=== PATIENT | female | born 1970 | race Caucasian/White ===

== ENCOUNTER 2024-02-21 16:29 | Emergency (ER) | payer MEDICAID, SELFPAY ==
[2024-02-21 16:30] VITALS: BP 183/93; PULSE 82; RESP 18; TEMP 36.6; O2SAT 98; BMI 32.8
[2024-02-21 16:45] LABS: Absolute Lymphocyte Count 3.81 X10^3/uL (0.83-4.51); Absolute Neutrophil Count 6.1 X10^3/uL (2.0-7.7); Basophil# 0.11 X10^3/uL; Basophil% 0.9 % (0-1); Eosinophil# 0.39 X10^3/uL; Eosinophils% 3.4 % (0-5); Hematocrit 36.4 % (37-47); Hemoglobin 12.1 g/dL (12.0-15.0); Lymphocyte # 3.81 X10^3/ul (0.83-4.51); Lymphocyte % 32.8 % (19-41); Mean Corp Hgb Conc 33.2 g/dL (32-36); Mean Corpuscular Hgb 27.9 pg (27.0-32.0); Mean Corpuscular Volume 83.9 fL (81-99); Monocyte# 1.18 X10^3/uL; Monocyte% 10.2 % (0-10); NRBC Flagged by Analyzer 0 % (0-5); Neutrophil # 6.06 X10^3/uL (2.7-7.7); Neutrophil % 52.2 % (47-70); Platelet Count 455 K/mm3 (150-450); RBC Distribution Width CV 13.7 % (11.6-14.6); RBC Distribution Width SD 42.1 fl (35.1-43.9); Red Blood Count 4.34 M/mm3 (4.2-5.4); White Blood Count 11.6 K/mm3 (4.4-11.0)
[2024-02-21 17:14] LABS: Bacteria 0 SEEN /hpf (None Seen); Mucous, Urine 0 SEEN /hpf (<or=2+)
[2024-02-21 17:27] LABS: Color, Urine Yellow (Yellow); Glucose, Dipstick Normal (Normal); Ketone-Dipstick Negative (Negative); Leukocyte Esterase-Dipstick Negative /ul (Negative); Nitrite-Dipstick Negative (Negative); Occult Blood-Urine Negative /ul (Negative); Protein-Dipstick Negative (Negative); Specific Gravity, Urine 1.015 (1.002-1.030); Urine Bilirubin Dipstick Negative (Negative); Urine Clarity Clear (Clear); Urine Urobilinogen Normal (Normal)
[2024-02-21 17:30] LABS: ALB/GLOB Ratio 1.1 RATIO (0.9-2.4); AST(SGOT) 13 U/L (15-37); Alanine Aminotransfer ALT/SGPT 21 U/L (13-56); Albumin, Serum 3.6 g/dL (3.2-5.0); Alkaline Phosphatase 124 U/L (45-117); Anion Gap 4 (5-15); BUN 18 mg/dL (7-18); BUN/Creat Ratio 21.4 RATIO (10-20); Calcium,Total 9.7 mg/dL (8.5-10.1); Chloride 106 mmol/L (98-107); Creatinine, Serum 0.84 mg/dL (0.55-1.02); EST Glomerular Filtration Rate 74 mL/min (>60); Est Glom Filt Rate - Afr Amer 90 mL/min (>60); Estimated Creatinine Clearance 79.64 ml/min; Globulin 3.4 g/dL (2.2-4.2); Glucose 172 mg/dL (74-106); Potassium 3.6 mmol/L (3.5-5.1); Sodium Level 137 mmol/L (136-145)
[2024-02-21 17:51] LABS: Red Blood Cells-Urine 0-5 SEEN /hpf (0-5); Squamous Epithelial Cells - UA 0-5 SEEN /hpf (5-10); White Blood Cells 0-5 SEEN /hpf (0-5)
[2024-02-21] MEDS: 0.9% Normal Saline (1000mL) 1,000 ML 999 ML IV (17:51)
--- NOTE | 2024-02-21 18:01 | EDS_ITS ---
HPI History of Present Illness Chief Complaint: Abd Pain Narrative Narrative: Chief complaint and HPI: Right lower quadrant abdominal pain. 54-year-old female with past medical history of neuroendocrine tumor status post splenectomy, bowel resection, partial pancreatectomy, DM, HTN, HLD presents for evaluation of right lower quadrant abdominal pain. Onset of symptoms 4 days ago. Has been taking Tylenol and Advil with some relief. Pain fluctuates in intensity. Radiates to the right flank/back. Called PCP who told her to present to the ED. No history of urolithiasis. History of UTI. Denies any fever, chills, shortness of breath, chest pain, nausea, vomiting, diarrhea, dysuria. Review of systems: See HPI Medications: As listed on the chart Allergies: As listed on the chart PFSH: Per chart Vital signs: As listed on the chart. Reviewed. Physical exam: Gen: A&O x3, NAD Head: Normocephalic, atraumatic Eyes: No sclera icterus, conjunctiva clear ENT: Moist mucous membranes Neck: Trachea midline, No JVD CV: RRR, no murmurs, no peripheral edema Resp: Lungs CTA BL, no w/r/c GI: Abd soft, non-distended, mild tenderness to palpation in the right lower quadrant, no rebound, rigidity, or guarding : No CVA tenderness Musc: Full ROM, no deformity, tender to palpation in the lumbar paraspinal musculature of the right lumbar spine-muscles tense Skin: Warm, dry Neuro: Alert, oriented, grossly intact, sensation intact Psych: Cooperative, appropriate mood and affect [facility] Medical History (Updated 02/21/24 @ 17:53 by Mariama Romero) Hypercholesteremia Hypertension Diabetes Allergy/AdvReac Type Severity Reaction Status Date / Time amoxicillin Allergy Mild Hives Verified 02/21/24 16:30 Sulfa (Sulfonamide AdvReac Mild OTHER Verified 02/21/24 16:30 Antibiotics) Social History Smoking Status: Never smoker EXAM Physical Exam Const Vital Signs: 02/21/24 16:30 02/21/24 18:29 02/21/24 20:00 Temperature 97.9 F Temperature Source Oral Pulse Rate 82 76 70 Respiratory Rate 18 16 Blood Pressure 183/93 H 154/84 H 141/77 H Blood Pressure Mean 123 107 98 Pulse Ox 98 98 98 Oxygen Delivery Method Room Air Room Air 02/21/24 20:59 Temperature 98 F Temperature Source Pulse Rate 77 Respiratory Rate 16 Blood Pressure 138/69 H Blood Pressure Mean 92 Pulse Ox 98 Oxygen Delivery Method MDM MDM MDM Narrative Medical decision making narrative: 54-year-old female with past medical history of neuroendocrine tumor status post splenectomy, bowel resection, partial pancreatectomy, DM, HTN, HLD presents for evaluation of right lower quadrant abdominal pain. Differential diagnosis includes but is not limited to appendicitis, urolithiasis, UTI, myofascial spasm, viral illness. Patient offered pain medicine and declined. Abdominal pain workup ordered. CBC with mild leukocytosis of 11.6. No anemia. Patient has mild thrombocytosis of 455. CMP without AYLA or transaminitis. UA negative for UTI or blood. CT abdomen pelvis shows known postoperative changes but otherwise no acute intra-abdominal pathology. At this point in time, no clear etiology for patient's pain. May be secondary to myofascial spasm. Tylenol and Motrin as needed for pain. Follow-up with PCP. Return precautions explained. Patient permed understand the plan. Patient stable to discharge home. Impression: 1. Right lower quadrant abdominal pain Lab Data Labs: Laboratory Results - last 24 hr 02/21/24 02/21/24 16:37 17:08 WBC 11.6 H RBC 4.34 Hgb 12.1 Hct 36.4 L MCV 83.9 MCH 27.9 MCHC 33.2 RDW Std Deviation 42.1 RDW Coeff of Dickson 13.7 Plt Count 455 H MPV 9.0 Immature Gran % (Auto) 0.500 Neut % (Auto) 52.2 Lymph % (Auto) 32.8 Rush % (Auto) 10.2 H Eos % (Auto) 3.4 Baso % (Auto) 0.9 Absolute Neuts (auto) 6.1 Absolute Lymphs (auto) 3.81 Nucleated RBC % 0 Sodium 137 Potassium 3.6 Chloride 106 Carbon Dioxide 28.0 Anion Gap 4 L BUN 18 Creatinine 0.84 Estim Creat Clear Calc 79.64 Est GFR (MDRD) Af Amer 90 Est GFR (MDRD) Non-Af 74 BUN/Creatinine Ratio 21.4 H Glucose 172 H Calcium 9.7 Total Bilirubin 0.50 AST 13 L ALT 21 Alkaline Phosphatase 124 H Total Protein 7.0 Albumin 3.6 Globulin 3.4 Albumin/Globulin Ratio 1.1 Urine Color Yellow Urine Clarity Clear Urine pH 6.0 Ur Specific [place] 1.015 Urine Protein Negative Urine Glucose (UA) Normal Urine Ketones Negative Urine Occult Blood Negative Urine Nitrite Negative Urine Bilirubin Negative Urine Urobilinogen Normal Ur Leukocyte Esterase Negative Urine RBC 0-5 SEEN Urine WBC 0-5 SEEN Ur Squamous Epith Cells 0-5 SEEN Urine Bacteria 0 SEEN Urine Mucus 0 SEEN Radiography Diagnostic Testing: Clinical Impression(s) from Imaging Studies Abdomen/Pelvis CT 02/21/24 18:22 IMPRESSION: Postoperative changes. No obstruction. No hydronephrosis. Electronically Signed: Vickey Avila MD at 19:42 EST , Discharge Plan Triage Chief Complaint: Abd Pain ED Provider: Reinaldo Mejia Dx/Rx/DC Orders Instructions: ED Abdominal Pain Unkn Cause Fem Primary Care Provider: Priscilla Avila Referrals: Priscilla Avila [Primary Care Provider] - 3-5 Days Activity Restrictions/Additional Instructions: Return back to ED if symptoms change or worsen. Follow-up with your primary care physician. Tylenol Motrin as needed for pain. Print Language: Swedish Disposition Disposition: Home, Self Care Discharge Date/Time: 02/21/24 21:00
--- NOTE | 2024-02-21 18:22 | CT_ITS ---
STUDY: CT ABDOMEN AND PELVIS WITH CONTRAST REASON FOR EXAM: Female, 54 years old. Right lower quadrant abdominal pain RADIATION DOSAGE (If Supplied By Facility): CTDIvol = ( 14.08 ) mGy, DLP = ( 1145.11 ) mGycm TECHNIQUE: Transaxial images were obtained from the dome of the diaphragm to the symphysis pubis without oral contrast. IV 100mL Isovue-300 was administered. Sagittal and coronal images were reconstructed. Individualized dose optimization techniques were used for this CT. COMPARISON: None. FINDINGS: The visualized lung bases are unremarkable. The visualized portions of the heart are within normal limits. Normal liver. There are surgical clips in the gallbladder fossa consistent with a prior cholecystectomy. The spleen is not seen consistent with splenectomy . There is resection of the tail of the pancreas. Normal bilateral adrenal glands. Normal right kidney. Normal left kidney. Normal visualized stomach. Normal small intestine. Normal colon. The appendix is visualized and appears normal. Normal abdominal aorta. Normal inferior vena cava. Normal retroperitoneum. Normal urinary bladder. There is absence of the uterus consistent with a prior hysterectomy. There is no free fluid in the abdomen or pelvis. There is postoperative change of the abdominal wall. There is degenerative change of the spine with disc space narrowing at L5-S1. CT/Abdomen/Pelvis W IV Cont ONLY IMPRESSION: Postoperative changes. No obstruction. No hydronephrosis. Electronically Signed: Vickey Avila MD at 19:42 EST ,
[2024-02-21 18:29] VITALS: BP 154/84; PULSE 76; O2SAT 98
[2024-02-21 20:00] VITALS: BP 141/77; PULSE 70; RESP 16; O2SAT 98
[2024-02-21 20:59] VITALS: BP 138/69; PULSE 77; RESP 16; TEMP 36.6; O2SAT 98
== END 2024-02-21 21:00 | disposition home or self-care (01) ==
PROVIDERS: Emergency Provider Surgery; PCP Family Medicine; Visit Provider Surgery
DX: R10.31 Right lower quadrant pain (principal); E11.9 Type 2 diabetes mellitus without complications; I10 Essential (primary) hypertension; E78.00 Pure hypercholesterolemia, unspecified; D75.839 Thrombocytosis, unspecified; Z88.0 Allergy status to penicillin; Z88.2 Allergy status to sulfonamides; Z90.81 Acquired absence of spleen; Z87.19 Personal history of other diseases of the digestive system; Z90.411 Acquired partial absence of pancreas; Z86.012 Personal history of benign carcinoid tumor; Z87.440 Personal history of urinary (tract) infections
CPT/HCPCS: 74177; 80053; 81001; 85025; 96360; 99283; Q9967; A4216

== ENCOUNTER 2024-03-27 12:00 | Outpatient (RCR) | payer MEDICAID, SELFPAY ==
--- NOTE | 2024-03-07 15:46 | HP.PTEVAL_ITS ---
Patient's Visit Information Visit Information Visit Information: SHILPA TEJEDA is a 54 year old F referred to Physical Therapy by Dr. Josafat Littlejohn MD with a diagnosis of R ACHILLES TENDINITIS, PLANTAR FASCITIS AND PERONEAL TENDON INJURY.. Date of Evaluation: 03/07/24 Physical Therapist: Trini Zepeda PT, Cert MDT Visit Plan Frequency: 2-3x /Week Duration: 3 Weeks Plan: SCHEDULED FOR NECK FUSION IN 3 WEEKS (03/29/24) - SEE GAIT PROGRESSION BELOW. 1. R FOOT/ANKLE US AT 1.3 W/CM2 X 8 MIN 2. R FOOT/ANKLE/LEG DEEP TISSUE STM 3. R LE ROM/STRETCHING 4. CORE AND R LE STRENGTHEING 5. GAIT/BALANCE/PROPRIOCEPTIVE TRAINING WBAT - HELP PATIENT TRANSITION GRADUALLY FROM WALKING BOOT TO SUPPORTIVE SHOE OVER NEXT 2 WEEKS TOLERATED. 6. HEP INST. Subjective Subjective: Work/Leisure: STAYS AT HOME WITH DAD (DIMENTIA) DISABILITY: YES - SINCE 2023 FOR BACK Present symptoms: R HEEL AND MEDIAL ANKLE AND FOOT PAIN. Present since: NOV 2023 Pain Scale: WORST 6/10, LEAST 1/10 Currently: 3/10 Is it getting better, worse or staying the same: STAYING THE SAME Commenced as a result of: NO APPARENT REASON. JUST MOVED. HAD TO DO MOST OF THE MOVING BECAUSE DAD CAN NOT HELP. IT WAS A LOT. DX'D WITH HEEL FX. Worse: SHOPPING, BEING ON IT A LOT Better: RESTING IT, USING TRAMADOL (PRESCRIBED FOR BACK), WRAPPING IT UP IN HEATING PAD. Disturbed sleep: YES Previous history/Previous treatment: H/O TOE FX'S A COUPLE TIMES IN THE PAST. SHELF FELL ON IT AND STUBBED FOOT ON OUT DOOR CHAIR. Treatment this episode: BOOT FOR 4 TO 6 WEEKS AND MRI SHOWED PLANTAR fasciitis. WASN'T ABLE TO STAY COMPLETELY OFF OF IT LIKE THEY WANTED HER TO BECAUSE OF NEEDING TO TAKE CARE OF 3 DOGS AND GET DAD TO DOCTOR DAHLIA'TS. ONLY TREATMENT HAS BEEN BOOT AND REST. Gait: TRIED TO WEAN INTO SHOE BUT COULDN'T SO DR. LITTLEJOHN PUT HER BACK IN BOOT AND HAD HER BUY [employer] TENNIS SHOES AND START PT. HAS BEEN BACK IN TALLER BOOT FOR ABOUT A WEEK AND NOT SUPPOSED TO START SHOE UNTIL STARTS PT. TAKES BOOT OFF TO DRIVE ONLY. SHE REPORTS DR. LITTLEJOHN TOLD HER EVERYTHING SHOULD BE GOOD AFTER TWO WEEKS AND SHE DOES NOT HAVE TO GO BACK TO SEE HIM ANYMORE. NO INJECTIONS. Unexplained weight loss: NO Imaging: R FOOT MRI PMH/Recent major surgery: IDDM - HAS PUMP - NEUROPATHY. HTN. HIGH CHOLESTEROL. LUMBAR AND CERVICAL DDD. CERVICAL NECK FUSION PENDING 03/29/24. Objective Objective: THIS PATIENT AMBULATES INDEP'LY INTO PT IMMOBILIZED IN A R ANKLE BOOT WITHOUT ANY ASSISTIVE DEVICES. SHE IS PLEASANT AND COOPERATIVE TO WORK WITH. SHE HAS FLAT FEET. SENSATION: R LE LIGHT TOUCH SENSATION IS GROSSLY INTACT. PALPATION: SHE HAS TENDERNESS WITH PALPATION MEDIALLY ALONG THE R POSTERIOR T IBIAL REGION AND NEAR ACHILLES INSERTION SHE REALLY ISN'T TENDER LATERALLY ALONG THE PERONEAL TENDONS. SHE ALSO ISN'T TENDER OVER THE MID FOOT OR TOES. ROM: R KNEE AROM 0-0-120 WITH C/O R KNEE PAIN. R ANKLE DF 8 DEG, PF 50 DEG, INV 44 DEG, EV 33 DEG. PATIENT C/O R FOOT/ANKLE PAIN DURING ANKLE ROM TESING AND R KNEE PAIN WITH KNEE ROM TESTING. STRENGTH: R HIP 4-/5, KNEE EXT 4/5, KNEE FLEX 4/5, DF 4/5, PF 4/5, IV 4/5, EV 4/5. PATIENT C/O R KNEE PAIN DURING KNEE TESTING AND FOOT/ANKLE PAIN DURING ANKLE TESTING. PATIENT DENIED INCREASED PAIN OVER-ALL POST SESSION. Balance/Special Test Scores Lower Extremity Functional Score: 41 Goals Goal 1:: DECREASE C/O R LE PAIN BY AT LEAST 50% TO EASE ADL'S PRIOR TO NECK SX IN 3 WKS Goal Time Frame: 2-4 Weeks Goal 2:: INCREASE PAINFREE FUNCTION ROM OF R KNEE AND ANKLE TO EASE ADL'S Goal Time Frame: 2-4 Weeks Goal 3:: INCREASE FUNCTIONAL R LE STRENGTH TO IMPROVE ADL'S. Goal Time Frame: 2-4 Weeks Goal 4:: NORMALIZE GAIT ON LEVEL SURFACES IN NORMAL FOOTWEAR WITHOUT AD Goal Time Frame: 2-4 Weeks Goal 5:: PATIENT WILL BE ABLE TO GO UP AND DOWN STEPS RECIPROCALLY WITH ONE HR WITHOUT LIMITATION Goal Time Frame: 2-4 Weeks Goal 6:: INDEP HEP Goal Time Frame: 2-4 Weeks Rehabilitation Potential Physical Therapy Diagnosis: R LE TIGHTNESS AND WEAKNESS WITH FOOT AND ANKLE TENDERNESS LIMITING GAIT Rehabilitation Potential: Good Anticipated Interventions Patient/Client Instruction: Educate patient on: Condition, Plan of Care and Risk Factors For the Purpose of:: To improve self management Therapeutic Exercise to Include: Strength training, Balance training, Flexibilty training, Gait and locomotor training, Neuromotor development, In an aquatic setting, Passive ROM and Active ROM For the Purpose of:: To decrease pain, To increase ROM, To improve nutrient delivery to tissue, To improve muscle performance and motor function, To increase tolerance to activity/condition/position, To improve ability of physical actions for home/community/work/leisure, To improve gait and locomotor functions, To decrease soft tissue restriction, To increase flexibility/ROM, To improve balance and To improve self management Manual Therapy Techniques to Include: Trigger point massage, Mobilization, Passive ROM and Soft tissue mobilization For the Purpose of:: To decrease pain, To decrease swelling/inflammation, To increase ROM, To improve nutrient delivery to tissue, To improve muscle performance and motor function and To decrease soft tissue restriction Thermo therapy (hot pack): Yes Ultrasound (thermal/non thermal): Yes For the Purpose of:: To decrease pain and To improve nutrient delivery to tissue Text: Thank you for the opportunity to evaluate your patient. For Medicare and Medicare HMO plans, please review the plan of care and approve it. It will need to be FAXED BACK to us at [phone] for Medicare purposes. For Medicare only, by signing this I certify the plan of care. Please let me know if there are questions or concerns regarding this plan of care. Physician Signature: Date:
--- NOTE | 2024-03-27 15:24 | HP.PTDCSUM ---
Discharge Summary D/C summary: It has been my pleasure to treat SHILPA TEJEDA referred by Dr. Josafat Littlejohn MD, with the diagnosis of R ACHILLES TENDINITIS, PLANTAR FASCITIS AND PERONEAL TENDON INJURY. for a total of 6 visit(s). Discharge Date: 03/27/24 Please see the following information for a summary of their discharge status. Subjective Subjective: PATIENT REPORTS HER HEEL FELT REALLY GOOD WHEN SHE LEFT THERAPY MONDAY BUT THEN SHE HAD TO RUN ERRANDS. SHE REPORTS SHE WENT TO THE PHARMACY, [employer], TO [place] THEN HAD TO GO HOME BECAUSE IT WAS GETTING REALLY SORE. SHE STATES SHE WAS WEARING HER SUPPORTIVE [employer] TENNIS SHOES WITH THE PAMELA CUP THAT DAY. TODAY SHE IS IN BOOTS THAT ARE LESS SUPPORTIVE BUT MORE COMFORTABLE. SHE REPORTS STEADY IMPROVEMENT UNTIL AND BEING COMPLETELY WEANED OUT OF SURGICAL BOOT UNTIL INCREASED ACTIVITY Monday03/23/24 PLAYING WITH GRANDKIDS. SHE ALSO REPORTS SHE HAD TO STOP TAKING HER BACK PAIN MEDS (03/24/24) TO GET READY FOR HER NECK SURGERY THAT IS PENDING IN 2 DAYS. PATIENT REPORTS SHE WAS SUPER HAPPY WITH HER PROGRESS IN THE BEGINNING AND FOLLOWING THROUGH WITH HOME EX'S AND IT HAS ONLY BEEN SINCE MON/MONDAY THAT SHE REGRESSED. Pain Right Heel: Pain Intensity (Out of 10): 2 Overall Improvement % Improvement: 50 Objective Objective/Function: PATIENT WAS SEEN TODAY FOR RE-ASSESSMENT OF PROGRESS TOWARD THE SET PT GOALS AND THE NEED FOR FURTHER PHYSICAL THERAPY VS READINESS FOR DISCHARGE. THIS PATIENT WAS MAKING GOOD PROGRESS WITH PT ON A FEW DAYS AGO WHEN HER PAIN FLARED UP AFTER INCREASED ACTIVITY. SHE REPORTED PRETTY MUCH BEING COPLETELY WEANED OUT OF THE BOOT WITH GOOD PAIN CONTROL PRIOR TO THAT. EVEN WITH HER INCREASED PAIN TODAY HER STRENGTH AND ROM IS MUCH IMPROVED COMPARED TO JUST 3 WEEKS AGO AT INITIAL EVAL. WE ARE DISCHARGING HER TODAY DUE TO PENDING NECK SURGERY IN 2 DAYS. SHE IS INDEP WITH A HEP BUT BASED ON ASSESSMENT TODAY, PHYSICIAN FOLLOW UP IS RECOMMENDED. PATIENT IS AGREEABLE. SHE HAS STARTED WEARING THE BOOT AGAIN NEEDED TO TRY TO DECREASE THE PAIN AND SHE IS HOPING REST WITH HER NECK SURGERY WITH HELP TOO. UPON EXAM TODAY: THIS PATIENT AMBULATES INDEP'LY INTO PT WITHOUT AD AND WITH SIGNIFICANT LIMP ON R LE WHILE WEARING UNSUPPORTIVE SLIP ON BOOTS AND NO HEEL CUPS. ROM: R KNEE AROM 0-0-128 WITHOUT C/O R KNEE PAIN. R ANKLE DF 15 DEG, PF 52 DEG, INV 56 DEG, EV 36 DEG. PATIENT DENIES INCREASED PAIN WITH TESTING. STRENGTH: R HIP 5/5, KNEE EXT 5/5, KNEE FLEX 5/5, DF 5/5, PF 5/5, IV 5/5, EV 5/5. PATIENT DENIES INCREASED FOOT AND KNEE PAIN DURING TESTING. OTHER: PATIENT UNABLE TO SLS R LE WITHOUT UE ASSIST AND EVEN PWB R LE WITH FOOT FLAT PRODUCES C/O INCREASED R HEEL PAIN. PALPATION: TENDERNESS WITH LIGHT PALPATION PLANTAR SURFACE OF R HEEL BUT OTHERWISE PATIENT DENIES TENDERNESS WITH PALPATION OF R FOOT AND ANKLE. Goals Goal 1:: DECREASE C/O R LE PAIN BY AT LEAST 50% TO EASE ADL'S PRIOR TO NECK SX IN 3 WKS Goal Progress: Goal Met Goal 2:: INCREASE PAINFREE FUNCTION ROM OF R KNEE AND ANKLE TO EASE ADL'S Goal Progress: Goal Met Goal 3:: INCREASE FUNCTIONAL R LE STRENGTH TO IMPROVE ADL'S. Goal Progress: Goal Met Goal 4:: NORMALIZE GAIT ON LEVEL SURFACES IN NORMAL FOOTWEAR WITHOUT AD Goal Progress: Goal Met Goal 5:: PATIENT WILL BE ABLE TO GO UP AND DOWN STEPS RECIPROCALLY WITH ONE HR WITHOUT LIMITATION Goal Progress: Not Met Goal 6:: INDEP HEP Goal Progress: Goal Met Plan Plan: D/C. D/C Information d/c sentence: If there are questions or concerns regarding this patient's physical therapy, please feel free to call me at [phone]. Thank you for the referral of this patient. Sincerely, Trini Zepeda, PT, Cert MDT Balance/Gait/Functional tests Balance/Special Test Scores Lower Extremity Functional Score: 58 Improvement % Improvement: 50
== END 2024-03-27 19:00 | disposition home or self-care (01) ==
LOC: PT 12:00
PROVIDERS: PCP Family Medicine; Referring Provider Family Medicine; Visit Provider Family Medicine
DX: S86.301D Unspecified injury of muscle(s) and tendon(s) of peroneal muscle group at lower leg level, right leg, subsequent encounter (principal); M72.2 Plantar fascial fibromatosis; M76.61 Achilles tendinitis, right leg
CPT/HCPCS: 97035; 97110; 97140; 97162; 97530

== ENCOUNTER 2024-09-03 20:52 | Emergency (ER) | payer MEDICAID, SELFPAY ==
--- NOTE | 2024-09-03 01:35 | RAD_ITS ---
PROCEDURE: CHEST 1 VIEW (PORTABLE) 09/04/2024 REASON FOR EXAM: CHEST PAIN TECHNIQUE: Frontal view of the chest. COMPARISON: No FINDINGS: Status post cervical spine surgery. Normal heart size. Well inflated lungs. No consolidation, effusion, or pneumothorax. RAD/Chest 1 View (Portable) IMPRESSION: No acute chest findings. Reading Location: [place] [id number]
[2024-09-03 20:54] VITALS: BP 117/61; PULSE 75; RESP 17; TEMP 36.6; O2SAT 100; BMI 33.6
--- NOTE | 2024-09-03 22:42 | EKG12_ITS ---
Test Reason : CP Blood Pressure : */* mmHG Vent. Rate : 66 BPM Atrial Rate : 66 BPM P-R Int : 174 ms QRS Dur : 78 ms QT Int : 432 ms P-R-T Axes : 28 15 45 degrees QTcB Int : 452 ms Normal sinus rhythm Confirmed by Rod Mitchell ([id number]), videotape editor MARION LOYA [id number]) on 09/04/2024 1:49:27 PM Referred By: TA Confirmed By: Rod Mitchell
--- NOTE | 2024-09-03 22:47 | EX.ED.DYSGE1 ---
HPI <Dr. Rush Garcia DO - Last Filed: 09/04/24 00:02> History of Present Illness Chief Complaint: General Illness [facility] <Dr. Rush Garcia DO - Last Filed: 09/04/24 00:02> [facility] Medical History (Updated 09/03/24 @ 23:[address] Rush Garcia, DO) Hypercholesteremia Hypertension Diabetes Home Medications Medication Instructions Recorded Last Taken Type ondansetron 4 mg disintegrating 4 mg PO Q8H PRN PRN Nausea #10 tabs 09/03/24 Unknown Rx tablet Allergy/AdvReac Type Severity Reaction Status Date / Time bupropion (From Wellbutrin) Allergy Severe Angioedema Verified 09/03/24 20:57 venlafaxine (From Effexor) Allergy Severe Hives Verified 09/03/24 20:57 amoxicillin Allergy Mild Hives Verified 02/21/24 16:30 Sulfa (Sulfonamide AdvReac Mild OTHER Verified 02/21/24 16:30 Antibiotics) Social History Smoking Status: Never smoker EXAM <Dr. Rush Garcia, - Last Filed: 09/04/24 00:02> Physical Exam Const Vital Signs: 09/03/24 20:54 09/04/24 00:00 09/04/24 00:04 Temperature 97.8 F Temperature Source Oral Pulse Rate 75 Respiratory Rate 17 Respiratory Effort Normal Non-Labored Respiratory Pattern Normal Blood Pressure 117/61 Blood Pressure Mean 79 Pulse Ox 100 Oxygen Delivery Method Room Air Room Air 09/04/24 00:05 09/04/24 02:00 Temperature Temperature Source Pulse Rate 77 65 Respiratory Rate 16 17 Respiratory Effort Respiratory Pattern Blood Pressure 110/66 111/49 L Blood Pressure Mean 80 69 Pulse Ox 99 98 Oxygen Delivery Method Room Air <Dr. David Carlson, DO - Last Filed: 09/04/24 03:56> Physical Exam Const Vital Signs: 09/03/24 20:54 09/04/24 00:00 09/04/24 00:04 Temperature 97.8 F Temperature Source Oral Pulse Rate 75 Respiratory Rate 17 Respiratory Effort Normal Non-Labored Respiratory Pattern Normal Blood Pressure 117/61 Blood Pressure Mean 79 Pulse Ox 100 Oxygen Delivery Method Room Air Room Air 09/04/24 00:05 09/04/24 02:00 Temperature Temperature Source Pulse Rate 77 65 Respiratory Rate 16 17 Respiratory Effort Respiratory Pattern Blood Pressure 110/66 111/49 L Blood Pressure Mean 80 69 Pulse Ox 99 98 Oxygen Delivery Method Room Air [facility] <Dr. Rush Garcia, DO - Last Filed: 09/04/24 00:02> [facility] Narrative Medical decision making narrative: HISTORY OF PRESENT ILLNESS: Chief complaint: Concern for new medication initiation 54-year-old female history of hypertension, type 2 diabetes and hyperlipidemia presents with concern for low blood pressure reading at home. No she started a new blood pressure medicine 6 weeks ago. She notes she has had several "hypotensive readings at home". She states was working outside today and not sure if her blood pressure medicine is a affecting her. No she think she could be dehydrated. She further states she has had multiple low blood pressure readings. She notes her carvedilol has been titrated upwards of last several weeks from 3 to 6 to 12-1/2 mg. Notes she takes lisinopril in the morning and carvedilol once at night. Denies current chest pain. Does note she feels slightly short of breath. Denies palpitations. Denies abdominal pain. Denies vomiting. Denies fevers. REVIEW OF SYSTEMS: Pertinent positives: Low blood pressure Pertinent negatives: As per HPI PHYSICAL EXAM: Nursing triage notes reviewed, Vital signs reviewed Constitutional: please see [facility] HENT: MMM Eyes: Pupils equal round and reactive to light, Extraocular muscles intact Neck: No stridor, no JVD, full neck ROM Lungs: Clear to auscultation, No wheezing or rales. No increased work of breathing, no conversational dyspnea, no accessory muscle use, no nasal flaring. No respiratory distress noted Heart: Regular rate and rhythm, No murmurs, No rubs and No gallops, 2+ distal pulses (radial, femoral, posterior tibial) in all extremities Abdomen: Soft, there is no tenderness, rigidity, rebound or guarding, no obvious peritoneal signs, no palpable pulsatile abdominal masses, no auscultated abdominal bruit : No CVAT Extremities: No edema Neuro: No new focal neurological deficits, cranial nerves II through XII intact, 5/5 strength in all present extremities. Intact sensation to light touch in all present extremities, 2+ reflexes bilateral patella tendons. Skin: No rash or lesions noted MEDICAL DECISION MAKING: Chief Complaint: please see HPI External records reviewed: Reviewed prior ED note, reviewed medications Factors affecting care: as per HPI Social determinants of health: none History obtained from others: none Consults: none [facility] Narrative: The patient was initially hemodynamically stable, afebrile and nontoxic-appearing. Exam without focal cardiopulmonary abnormalities. I considered the following differential diagnosis: Arrhythmia, distributive shock, cardiogenic shock, hemorrhagic shock, neurogenic There is no report of falls, back pain or other trauma to suggest neurogenic shock. There is no bleeding diathesis to suggest hemorrhagic shock. The patient denied chest pain however she did note some shortness of breath so I assessed cardiogenic shock, distributive shock arrhythmia via labs images. I obtained a broad lab and imaging workup to further determine if the patient was suffering from a life-threatening etiology. ALL IMAGES (IF OBTAINED) HAVE BEEN PERSONALLY REVIEWED AND INTERPRETED BY MYSELF. EKG with normal sinus rhythm rate of 66, normal axis, normal intervals, QTc 452, no STEMI CBC leukocytosis suggestive of system inflammation, no anemia thrombocytopenia note BMP with no significant electrolyte abnormalities, noted mild elevation in anion gap suggestive of endorgan hypoperfusion, no acute kidney injury with elevated creatinine compared to prior High-sensitivity troponin is negative, no evidence of myocardial ischemia Chest x-ray pending Shared decision-making discussion was undertaken with the patient. The patient was alert and orient x 3 and had capacity to make own decisions. Patient was offered admission given AYLA report of hypotension however patient states that she be more comfortable if she can go home. I stated this is generally safe as long she is not vomiting, she can maintain oral hydration, and she can follow-up outpatient labs. Will sign out to p.m. physician pending lactate and repeat BMP. If creatinine is downtrending at full code with the patient going home with instruction to take more p.o. fluid, prescription for Zofran and to follow with her primary care physician for repeat creatinine as an outpatient The patient and/or family, caregivers express understanding. The patient and/or family, caregivers agrees with the plan. Shared decision making: I will have a discussion with the patient and or visitors regarding risk/benefits of further testing or admission. They will be made aware of of the risk/benefits inherent in this decision they will be given the opportunity to voice understanding. Total critical care time today provided was at least 0 minutes. This excludes separately billable procedures. Critical care time (if documented) is secondary to the patient having high probability of clinically significant/life threatening deterioration in the patient's condition which required my urgent intervention. Impression: 1. Hypotension 2. Dehydration 3. AYLA Dispo: Signed out to overnight physician pending lactate and repeat BMP This note was generated with PPI dictation software. It may contain incorrect words, spelling, and punctuation that were not noted in review of the chart prior to signing. Lab Data Labs: Laboratory Results - last 24 hr 09/03/24 09/04/24 09/04/24 22:41 00:00 02:32 WBC 13.0 H RBC 4.71 Hgb 13.5 Hct 40.8 MCV 86.6 MCH 28.7 MCHC 33.1 RDW Std Deviation 44.0 H RDW Coeff of Dickson 14.0 Plt Count 322 MPV 10.6 Immature Gran % (Auto) 0.800 Neut % (Auto) 72.8 H Lymph % (Auto) 17.0 L Kaufman % (Auto) 6.1 Eos % (Auto) 2.6 Baso % (Auto) 0.7 Absolute Neuts (auto) 9.5 H Absolute Lymphs (auto) 2.21 Nucleated RBC % 0 Differential Comment SCANNED Sodium 141 142 Potassium 4.1 4.2 Chloride 103 107 Carbon Dioxide 22.7 23.6 Anion Gap 16 H 12 BUN 23 H 23 H Creatinine 1.90 H 1.61 H Estim Creat Clear Calc 35.69 L 42.12 L Est GFR (MDRD) Non-Af 31 L 37 L BUN/Creatinine Ratio 12.0 14.3 Glucose 103 H 75 Lactic Acid < 1.0 Calcium 9.7 8.3 Troponin T High Sens 10 Radiography Diagnostic Testing: Clinical Impression(s) from Imaging Studies Chest X-Ray 09/03/24 01:35 IMPRESSION: No acute chest findings. Reading Location: [facility] <Dr. David Carlson, DO - Last Filed: 09/04/24 03:56> [facility] Lab Data Labs: Laboratory Results - last 24 hr 09/03/24 09/04/24 09/04/24 22:41 00:00 02:32 WBC 13.0 H RBC 4.71 Hgb 13.5 Hct 40.8 MCV 86.6 MCH 28.7 MCHC 33.1 RDW Std Deviation 44.0 H RDW Coeff of Dickson 14.0 Plt Count 322 MPV 10.6 Immature Gran % (Auto) 0.800 Neut % (Auto) 72.8 H Lymph % (Auto) 17.0 L Kaufman % (Auto) 6.1 Eos % (Auto) 2.6 Baso % (Auto) 0.7 Absolute Neuts (auto) 9.5 H Absolute Lymphs (auto) 2.21 Nucleated RBC % 0 Differential Comment SCANNED Sodium 141 142 Potassium 4.1 4.2 Chloride 103 107 Carbon Dioxide 22.7 23.6 Anion Gap 16 H 12 BUN 23 H 23 H Creatinine 1.90 H 1.61 H Estim Creat Clear Calc 35.69 L 42.12 L Est GFR (MDRD) Non-Af 31 L 37 L BUN/Creatinine Ratio 12.0 14.3 Glucose 103 H 75 Lactic Acid < 1.0 Calcium 9.7 8.3 Troponin T High Sens 10 Radiography Diagnostic Testing: Clinical Impression(s) from Imaging Studies Chest X-Ray 09/03/24 01:35 IMPRESSION: No acute chest findings. Reading Location: [facility] Treatment and Re-Evaluation :: The patient was signed out to me while awaiting response IV fluids and repeat labs. The patient's creatinine trended down from 1.9-1.6. Her lactic acid is normal going against endorgan damage. Her blood pressure has remained stable at approximately 110-115/50-60. She is awake alert and oriented upon reevaluation. Therefore at this time as her creatinine is downtrending and the remainder of her labs do not reveal any clinically significant findings and her vitals have remained stable I do not feel there is need for admission. This plan of care was discussed with the patient and she is agreeable to it. She understands that she should have repeat blood work in approximate 1 week to ensure her kidney function is improving. She also understands that if symptoms are worsening she may need repeat evaluation in the ER potential admission for IV fluids and further care. However at this time with improvement of her creatinine and her vitals remained stable she will be discharged home and can treat this as an outpatient Discharge Plan Triage Chief Complaint: General Illness ED Provider: Rush Garcia Dx/Rx/DC Orders Clinical Impression: AYLA (acute kidney injury), Dehydration Prescriptions: New ondansetron 4 mg tablet,disintegrating 4 mg PO Q8H PRN PRN (Reason: Nausea) Qty: 10 0RF Primary Care Provider: PRISCILLA AVILA Referrals: Priscilla Avila [Non-Staff] - Activity Restrictions/Additional Instructions: Thank you for trusting us with your care today! Please discontinue taking lisinopril Please take Zofran as needed for nausea control at home Please drink plenty of oral fluids I recommend Body Armor, Pedialyte or Gatorade. Please return to the emergency department if your symptoms change or worsen. Please follow with your primary care physician for further outpatient evaluation and management. Print Language: Divehi Disposition Disposition: Home, Self Care
[2024-09-03 22:56] LABS: Hematocrit 40.8 % (37-47); Hemoglobin 13.5 g/dL (12.0-15.0); Immature Granulocytes Count 0.110 X10^3/uL (0.0-0.0); Mean Corp Hgb Conc 33.1 g/dL (32-36); Mean Corpuscular Volume 86.6 fL (81-99); Mean Platelet Vol. 10.6 fl (6.2-12.0); NRBC Flagged by Analyzer 0 % (0-5); POSITIVE COUNT YES; Platelet Count 322 K/mm3 (150-450); RBC Distribution Width CV 14.0 % (11.6-14.6); RBC Distribution Width SD 44.0 fl (35.1-43.9); Red Blood Count 4.71 M/mm3 (4.2-5.4); White Blood Count 13.0 K/mm3 (4.4-11.0)
[2024-09-03 23:02] LABS: Differential Indicated SCAN CRITERIA MET
[2024-09-03 23:11] LABS: Anion Gap 16 (5-15); BUN 23 mg/dL (4-19); BUN/Creat Ratio 12.0 RATIO (10-20); Calcium,Total 9.7 mg/dL (7.6-11.0); Carbon Dioxide 22.7 mmol/L (21.0-32.0); Chloride 103 mmol/L (98-108); Estimated Creatinine Clearance 35.69 ml/min (50-250); Glucose 103 mg/dL (70-99); Potassium 4.1 mmol/L (3.3-5.1); Troponin T High Sensitivity 10 ng/L (<=14)
[2024-09-03 23:43] LABS: Differential Comment SCANNED
[2024-09-04 00:05] VITALS: BP 110/66; PULSE 77; RESP 16; O2SAT 99
[2024-09-04] MEDS: 0.9% Normal Saline (1000mL) 1,000 ML 999 ML IV (00:12)
[2024-09-04] MEDS: 0.9% Normal Saline (500mL Bag) 500 ML 999 ML IV (01:55)
[2024-09-04 02:00] VITALS: BP 111/49; PULSE 65; RESP 17; O2SAT 98
[2024-09-04 03:44] LABS: Anion Gap 12 (5-15); BUN 23 mg/dL (4-19); BUN/Creat Ratio 14.3 RATIO (10-20); Calcium,Total 8.3 mg/dL (7.6-11.0); Carbon Dioxide 23.6 mmol/L (21.0-32.0); Chloride 107 mmol/L (98-108); Estimated Creatinine Clearance 42.12 ml/min (50-250); Glucose 75 mg/dL (70-99); Potassium 4.2 mmol/L (3.3-5.1)
[2024-09-04 03:59] VITALS: BP 116/62; PULSE 68; RESP 18; TEMP 37.1; O2SAT 99
== END 2024-09-04 04:04 | disposition home or self-care (01) ==
PROVIDERS: Emergency Provider Emergency Medicine; PCP Family Medicine; Visit Provider Emergency Medicine
DX: N17.9 Acute kidney failure, unspecified (principal); E11.9 Type 2 diabetes mellitus without complications; I95.9 Hypotension, unspecified; E86.0 Dehydration; I10 Essential (primary) hypertension; E78.5 Hyperlipidemia, unspecified; Z79.899 Other long term (current) drug therapy
CPT/HCPCS: 71045; 80048; 83605; 84484; 85025; 93005; A4216; J2405

== ENCOUNTER 2024-09-04 14:58 | Observation (INO) | payer MEDICAID, SELFPAY ==
[2024-09-04 14:59] VITALS: BP 112/63; PULSE 78; RESP 16; TEMP 36.8; O2SAT 99; BMI 34.0
--- NOTE | 2024-09-04 15:40 | CT_ITS ---
PROCEDURE: ABDOMEN/PELVIS W IV CONT ONLY 09/04/2024 REASON FOR EXAM: ABDOMINAL PAIN TECHNIQUE: ABDOMEN/PELVIS W IV CONT ONLY Coronal and Sagittal reconstruction series were provided. CONTRAST: 100 mL of Isovue 370 One or more dose reduction techniques were used (e.g., Automated exposure control, adjustment of the mA and/or kV according to patient size, use of iterative reconstruction technique. RADIATION DOSE SUMMARY: DLP: 1101 mGycm COMPARISON: 02/21/2024 FINDINGS: Limited sections of the lung bases demonstrate no focal pulmonary mass or consolidations. The liver, spleen, pancreas, and both adrenal glands demonstrate no acute findings. Hepatomegaly to 18.2 cm. The gallbladder is surgically removed The stomach is unremarkable. The small bowel loops are not dilated. The appendix is normal. Left colonic and sigmoid colonic wall thickening and inflammation concerning for colitis. There is scattered colonic diverticuli without focal diverticulitis. No bowel obstruction. Trace free fluid. No free air. The kidneys are unremarkable. The urinary bladder is partially distended. The pelvic structures are intact. There is no solid pelvic mass. Tubal ligations. No significant lymphadenopathy. The aorta and IVC demonstrate no acute findings. Mild atherosclerosis of the abdominal vasculature. Visualized osseous structures demonstrate no acute abnormality. CT/Abdomen/Pelvis W IV Cont ONLY IMPRESSION: Left colonic and sigmoid colonic wall thickening and inflammation concerning fo r colitis. There is scattered colonic diverticuli without focal diverticulitis. No bowel obstruction. Reading Location: [id number]
--- NOTE | 2024-09-04 15:41 | ED.VIS.GI ---
HPI HPI - GI History of Present Illness Chief Complaint: GI Bleed Narrative Narrative: 54-year-old female who was seen in the emergency department yesterday evening was diagnosed with AYLA and dehydration presents with rectal bleeding that began at 4:00 this morning, approximately 12 hours ago. She states after she was released from the emergency department, at around 4:00 in the morning she started having bloody bowel movements. She has had at least 5 today. The last was at noon, approximately 3-1/2 hours ago. She does not take NSAIDs on a regular basis but took naproxen recently. Denies other blood thinners. She is having crampy abdominal pain as well. She has had previous abdominal surgeries including cholecystectomy and partial resection of the pancreas. She has had splenectomy as well. She denies other bleeding diathesis. She states she called her primary care provider and was trying to make an appointment for follow-up from yesterday's visit and she told them of the rectal bleeding, and they advised her to report to the ED. She may feel somewhat weak and lightheaded as well. No fevers or chills, no nausea or vomiting, no hematemesis. [facility] Medical History Hypercholesteremia Hypertension Diabetes Home Medications ?Medication ?Instructions ?Recorded ?Last Taken ?Type atorvastatin 40 mg tablet 40 mg PO DAILY 09/04/24 09/03/24 History biotin 5 mg capsule 5 mg PO DAILY 09/04/24 09/04/24 History carvedilol 12.5 mg tablet 12.5 mg PO BID 09/04/24 09/04/24 History chlorthalidone 25 mg tablet 25 mg PO DAILY 09/04/24 09/04/24 History cholecalciferol (vitamin D3) 50 50 mcg PO DAILY 09/04/24 09/04/24 History mcg (2,000 unit) capsule (D3-2000) famotidine 20 mg tablet 20 mg PO QHS PRN heartburn 09/04/24 09/03/24 History fluoxetine 20 mg capsule 20 mg PO DAILY 09/04/24 09/04/24 History insulin aspart U-100 100 unit/mL 100 unit subcut DAILY 09/04/24 09/04/24 History subcutaneous solution multivitamin (Daily Value tablet) 1 tab PO DAILY 09/04/24 09/04/24 History naproxen sodium 220 mg tablet 220 mg PO BID PRN pain 09/04/24 09/03/24 History (Aleve) omeprazole 40 mg capsule,delayed 40 mg PO DAILY 09/04/24 09/04/24 History release pramipexole 1 mg tablet 1 mg PO QHS 09/04/24 09/03/24 History vibegron 75 mg tablet (Gemtesa) 75 mg PO DAILY 09/04/24 09/03/24 History Allergy/AdvReac Type Severity Reaction Status Date / Time bupropion (From Wellbutrin) Allergy Severe Angioedema Verified 09/04/24 15:00 venlafaxine (From Effexor) Allergy Severe Hives Verified 09/04/24 15:00 amoxicillin Allergy Mild Hives Verified 09/04/24 15:00 Sulfa (Sulfonamide AdvReac Mild OTHER Verified 09/04/24 15:00 Antibiotics) Social History Smoking Status: Never smoker ROS ROS ED ROS Narrative Review of systems positive for abdominal cramping, bright red blood per rectum, 5 episodes of bloody diarrhea. Mild lightheadedness. Denies other bleeding diathesis. No hematemesis. EXAM Physical Exam Narrative Exam Narrative: Afebrile. Vital signs noted. Nontoxic-appearing. Cardiovascular examination reveals regular rate and rhythm. Lungs are clear to auscultation bilaterally. Abdomen is soft and nontender with positive bowel sounds. No guarding or rebound. Neurological examination nonfocal nonlateralizing. Skin examination shows no evidence of pallor or subconjunctival pallor. Const Vital Signs: 09/04/24 14:59 09/04/24 16:16 09/04/24 16:58 Temperature 98.3 F Temperature Source Oral Pulse Rate 78 80 Pulse Rate [Lying] 70 Pulse Rate [Sitting (for 1 minute prior to obtaining)] 79 Pulse Rate [Standing (for 1 minute prior to obtaining)] 77 Respiratory Rate 16 14 Blood Pressure 112/63 112/55 L Blood Pressure [Lying] 113/54 L Blood Pressure [Sitting (for 1 minute prior to obtaining)] 112/57 L Blood Pressure [Standing (for 1 minute prior to obtaining)] 101/52 L Blood Pressure Mean 79 74 Blood Pressure Mean [Lying] 73 Blood Pressure Mean [Sitting (for 1 minute prior to obtaining)] 75 Blood Pressure Mean [Standing (for 1 minute prior to obtaining)] 68 Pulse Ox 99 100 Oxygen Delivery Method Room Air Room Air MDM MDM MDM Narrative Medical decision making narrative: Differential diagnosis includes but not limited to diverticular bleeding versus hemorrhoidal bleeding versus AV malformation versus undiagnosed Crohn or ulcerative colitis/inflammatory bowel disease. Currently she is hemodynamically stable. Orthostatics will be obtained as well as baseline laboratories. I reviewed her prior laboratories from yesterday evening and she had a hemoglobin of 13. CT imaging will be obtained to look for any obstruction. Chaperoned rectal examination will be performed as well. I reviewed her laboratory work and compared it to previous. Her WBC count increased from 13-16.6 with a drop in her potassium to 3.1. This was replaced orally. Of note, hemoglobin 11.9, down from 13.5 within the last 24 hours. BUN normal at 19 with creatinine 1.12. Glucose elevated at 185 but she has normal anion gap of 13. I reviewed the radiology report of the CT of the abdomen and pelvis and there is wall thickening of the left colon and sigmoid colon concerning for colitis. Chaperoned rectal examination revealed no active hemorrhage but she did have very small clots and dark red blood and a small amount on the glove surface. I discussed the patient with Dr. Sherman with gastroenterology. Given that she has dropped her hemoglobin within 24 hours to 11.9, he does feel that she will require bowel prep by the hospitalist and flexible sigmoidoscopy versus colonoscopy tomorrow. I will discuss patient with the hospitalist, Dr. Christi Colmenares for admission. Orthostatics are negative. She was started on Levaquin and Flagyl at the request of gastroenterology as she has allergy to amoxicillin. Patient is in stable condition. History & Record Review Discussion w/independent historian: Patient Lab Data Attestation: I reviewed the patient's lab results. Labs: Laboratory Results - last 24 hr 09/04/24 16:05 WBC 16.6 H RBC 4.20 Hgb 11.9 L Hct 37.0 MCV 88.1 MCH 28.3 MCHC 32.2 RDW Std Deviation 45.3 H RDW Coeff of Dickson 14.2 Plt Count 418 MPV 9.6 Immature Gran % (Auto) 0.500 Neut % (Auto) 77.7 H Lymph % (Auto) 13.7 L Talbot % (Auto) 6.1 Eos % (Auto) 1.6 Baso % (Auto) 0.4 Absolute Neuts (auto) 12.9 H Absolute Lymphs (auto) 2.28 Nucleated RBC % 0 Sodium 139 Potassium 3.1 L Chloride 101 Carbon Dioxide 25.7 Anion Gap 13 BUN 19 Creatinine 1.12 Estim Creat Clear Calc 60.90 Est GFR (MDRD) Non-Af 58 L BUN/Creatinine Ratio 16.8 Glucose 185 H Calcium 8.9 Radiography Diagnostic Testing: Clinical Impression(s) from Imaging Studies Abdomen/Pelvis CT 09/04/24 15:40 IMPRESSION: Left colonic and sigmoid colonic wall thickening and inflammation concerning for colitis. There is scattered colonic diverticuli without focal diverticulitis. No bowel obstruction. Reading Location: [facility] Management Discussion w/another healthcare provider: Hospitalist (Dr. Christi Colmenares) and Records Management Clerk (Dr. Sherman, gastro) Discharge Plan Dx/Rx/DC Orders Clinical Impression: Colitis, Gastrointestinal bleeding, lower, Hypokalemia, History of diabetes mellitus Disposition Disposition: Acute Care Hospital [facility]
[2024-09-04 16:16] VITALS: BP 101/52; BP 112/57; BP 113/54; PULSE 70; PULSE 77; PULSE 79
[2024-09-04 16:30] LABS: Hematocrit 37.0 % (37-47); Hemoglobin 11.9 g/dL (12.0-15.0); Immature Granulocytes Count 0.080 X10^3/uL (0.0-0.0); Mean Corp Hgb Conc 32.2 g/dL (32-36); Mean Corpuscular Volume 88.1 fL (81-99); Mean Platelet Vol. 9.6 fl (6.2-12.0); NRBC Flagged by Analyzer 0 % (0-5); Platelet Count 418 K/mm3 (150-450); RBC Distribution Width CV 14.2 % (11.6-14.6); RBC Distribution Width SD 45.3 fl (35.1-43.9); Red Blood Count 4.20 M/mm3 (4.2-5.4); White Blood Count 16.6 K/mm3 (4.4-11.0)
[2024-09-04 16:58] VITALS: BP 112/55; PULSE 80; RESP 14; O2SAT 100
[2024-09-04 17:23] LABS: Anion Gap 13 (5-15); BUN 19 mg/dL (4-19); BUN/Creat Ratio 16.8 RATIO (10-20); Calcium,Total 8.9 mg/dL (7.6-11.0); Carbon Dioxide 25.7 mmol/L (21.0-32.0); Chloride 101 mmol/L (98-108); Estimated Creatinine Clearance 60.90 ml/min (50-250); Glucose 185 mg/dL (70-99); Potassium 3.1 mmol/L (3.3-5.1)
[2024-09-04 17:53] VITALS: BP 133/53; PULSE 74; RESP 14; TEMP 36.6; O2SAT 98
[2024-09-04] MEDS: Potassium Chloride Oral Tablet 20 MEQ 40 MEQ PO (17:54)
[2024-09-04 18:00] VITALS: BP 111/61; PULSE 77; RESP 14; O2SAT 100
--- NOTE | 2024-09-04 18:21 | CASEMGMT ---
Care Management Face to Face with patient for initial transition planning/care coordination assessment in the ED.? This magnetic tape typewriter operator introduced self and role at [facility]. Patient alert and oriented. Patient willing to participate in assessment and is able to answer all questions appropriately.? Care providers, pharmacy, and demographics verified. 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 Patient is independent with ADLs and IADLs.? Transportation: ?patient drives DME: ?cane, walker, wheelchair, blood pressure cuff HHC: ?none SNF/Rehab: ?none Community Resources: ?none Behavioral Health History: ?depression and anxiety , on Cymbalta Patient goals: Patient wishes to discharge home, denies need for home health care at this time. Patient denies any further needs or concerns at this time. Disposition Plan: admission to acute; RN CM/SW to follow for discharge planning needs that may arise. Yeni Jacobo, MORTGAGE SPECIALIST, NATIONAL ACCOUNT REPRESENTATIVE
--- NOTE | 2024-09-04 18:41 | PCM.HP.STD ---
HPI - General General Date of Admission: 09/04/24 Date of Service: 09/04/24 Chief Complaint: Bright red blood per rectum HPI Narrative SHILPA TEJEDA, is a 54-year-old female with a history of hypertension, depression, diabetes, GERD presented to [facility] ED 09/04/2024 due to rectal bleeding began 4:00 this morning about 12 hours prior to arrival. He was seen in the ED yesterday for AYLA and dehydration. Since this a.m. she has had at least 5 bloody bowel movements with the last one approximately at noon. Left-sided crampy abdominal pain. 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 Patient feels a little bit weak and lightheaded. In the ED, temperature 98.3, heart rate 78 with a blood pressure 112/63, respiratory rate 16 pulse ox 99% on room air. Orthostats negative. CBC with white blood cell count of 16.6, hemoglobin 11.9 (down from 13.5), potassium 3.1 and BUN of 19 with creatinine 1.12 (down from 1.9 yesterday). Glucose 185. CT of the abdomen pelvis with left colonic and sigmoid colonic wall thickening and inflammation concerning for colitis. GI contacted in the ED and recommended bowel prep and she will be seen in consultation for possible lower scope. Patient evaluated at bedside, reports diarrhea that started yesterday months when she came to the ED, went home in stable condition but then between 4 AM and noon she had 4-5 bloody bowel movements, she did not notice clots but did notice bright red, she had crampy belly pain before each episode and still has a little bit of abdominal discomfort. Also some decreased urination. No fevers or chills but did have some sweats yesterday [facility] Medical History Hypercholesteremia Hypertension Diabetes Home Medications ?Medication ?Instructions ?Recorded ?Last Taken ?Type atorvastatin 40 mg tablet 40 mg PO DAILY 09/04/24 09/03/24 History biotin 5 mg capsule 5 mg PO DAILY 09/04/24 09/04/24 History carvedilol 12.5 mg tablet 12.5 mg PO BID 09/04/24 09/04/24 History chlorthalidone 25 mg tablet 25 mg PO DAILY 09/04/24 09/04/24 History cholecalciferol (vitamin D3) 50 50 mcg PO DAILY 09/04/24 09/04/24 History mcg (2,000 unit) capsule (D3-2000) famotidine 20 mg tablet 20 mg PO QHS PRN heartburn 09/04/24 09/03/24 History fluoxetine 20 mg capsule 20 mg PO DAILY 09/04/24 09/04/24 History insulin aspart U-100 100 unit/mL 100 unit subcut DAILY 09/04/24 09/04/24 History subcutaneous solution multivitamin (Daily Value tablet) 1 tab PO DAILY 09/04/24 09/04/24 History naproxen sodium 220 mg tablet 220 mg PO BID PRN pain 09/04/24 09/03/24 History (Aleve) omeprazole 40 mg capsule,delayed 40 mg PO DAILY 09/04/24 09/04/24 History release pramipexole 1 mg tablet 1 mg PO QHS 09/04/24 09/03/24 History vibegron 75 mg tablet (Gemtesa) 75 mg PO DAILY 09/04/24 09/03/24 History Allergy/AdvReac Type Severity Reaction Status Date / Time bupropion (From Wellbutrin) Allergy Severe Angioedema Verified 09/04/24 15:00 venlafaxine (From Effexor) Allergy Severe Hives Verified 09/04/24 15:00 amoxicillin Allergy Mild Hives Verified 09/04/24 15:00 Sulfa (Sulfonamide AdvReac Mild OTHER Verified 09/04/24 15:00 Antibiotics) Social History Smoking Status: Never smoker ROS ROS Narrative Patient reports multiple chronic problems but denies any new problems or changes aside from the following: General: Denies fever/chills but did have some sweats yesterday HENT: Denies headache, denies stuffy nose, denies sore throat EYES: Denies changes in vision Resp: Denies cough, denies shortness of breath Cardiac: Denies chest pain GI: Crampy abdominal pain and bright red blood per rectum, denies nausea/vomiting : Some decreased urination Extremity: Denies swelling MSK: Feels little bit weak overall Neuro: Denies any numbness/tingling Heme: Denies any bleeding or bruising Skin: Denies rashes Psychiatric: No complaints voiced Vital Signs Vital Signs Vital Signs: 09/04/24 14:59 09/04/24 16:16 09/04/24 16:58 Temperature 98.3 F Temperature Source Oral Pulse Rate 78 80 Pulse Rate [Lying] 70 Pulse Rate [Sitting (for 1 minute prior to obtaining)] 79 Pulse Rate [Standing (for 1 minute prior to obtaining)] 77 Respiratory Rate 16 14 Blood Pressure 112/63 112/55 L Blood Pressure [Lying] 113/54 L Blood Pressure [Sitting (for 1 minute prior to obtaining)] 112/57 L Blood Pressure [Standing (for 1 minute prior to obtaining)] 101/52 L Blood Pressure Mean 79 74 Blood Pressure Mean [Lying] 73 Blood Pressure Mean [Sitting (for 1 minute prior to obtaining)] 75 Blood Pressure Mean [Standing (for 1 minute prior to obtaining)] 68 Pulse Ox 99 100 Oxygen Delivery Method Room Air Room Air 09/04/24 17:53 09/04/24 18:00 Temperature 98 F Temperature Source Pulse Rate 74 77 Pulse Rate [Lying] Pulse Rate [Sitting (for 1 minute prior to obtaining)] Pulse Rate [Standing (for 1 minute prior to obtaining)] Respiratory Rate 14 14 Blood Pressure 133/53 H 111/61 Blood Pressure [Lying] Blood Pressure [Sitting (for 1 minute prior to obtaining)] Blood Pressure [Standing (for 1 minute prior to obtaining)] Blood Pressure Mean 79 77 Blood Pressure Mean [Lying] Blood Pressure Mean [Sitting (for 1 minute prior to obtaining)] Blood Pressure Mean [Standing (for 1 minute prior to obtaining)] Pulse Ox 98 100 Oxygen Delivery Method Room Air Weight Weight: 89.902 kg Body Mass Index (BMI) 34.0 Physical Exam Narrative General: Alert, oriented HEENT: Atraumatic, normocephalic Eyes: Anicteric, normal conjunctiva, extraocular movements grossly intact Neck: Supple Respiratory: Clear to auscultation bilaterally, normal respiratory effort Cardiovascular: Regular rate and rhythm GI: Some lower abdominal tenderness mostly in left lower quadrant without rebound, guarding, rigidity Extremities: No edema Musculoskeletal: Moving all extremities Neuro: No overt focal neurological deficits Skin: No rashes appreciated Psych: Cooperative Results Lab / Micro Data 09/04/24 16:05 09/04/24 16:05 Labs: Laboratory Results - last 24 hr 09/04/24 16:05: WBC 16.6 H, RBC 4.20, Hgb 11.9 L, Hct 37.0, MCV 88.1, MCH 28.3, MCHC 32.2, RDW Std Deviation 45.3 H, RDW Coeff of Dickson 14.2, Plt Count 418, MPV 9.6, Immature Gran % (Auto) 0.500, Neut % (Auto) 77.7 H, Lymph % (Auto) 13.7 L, [place] % (Auto) 6.1, Eos % (Auto) 1.6, Baso % (Auto) 0.4, Absolute Neuts (auto) 12.9 H, Absolute Lymphs (auto) 2.28, Nucleated RBC % 0, Sodium 139, Potassium 3.1 L, Chloride 101, Carbon Dioxide 25.7, Anion Gap 13, BUN 19, Creatinine 1.12, Estim Creat Clear Calc 60.90, Est GFR (MDRD) Non-Af 58 L, BUN/Creatinine Ratio 16.8, Glucose 185 H, Calcium 8.9 Imaging Radiology Impression Abdomen/Pelvis CT 09/04/24 15:40 IMPRESSION: Left colonic and sigmoid colonic wall thickening and inflammation concerning for colitis. There is scattered colonic diverticuli without focal diverticulitis. No bowel obstruction. Reading Location: [facility] Assessment & Plan Assessment/Plan (1) Gastrointestinal bleeding, lower: PLAN: Plan # Lower GI bleed suspect secondary to colitis -Supportive care -Trend H&H -Hemoglobin 11.9, yesterday was 13.5 however patient received IV fluids today AYLA so suspect part of this is dilutional however still significant drop and has noted multiple episodes of bloody diarrhea -GI contacted in ED and recommended prep and they will see in consultation -Colon prep ordered -GI consult placed -Antibiotics started in the ED, will continue #Hypokalemia -Replace -Repeat in the AM #Hypertension - Blood pressure 112/55, hold chlorthalidone, will decrease dose of Coreg. Uptitrate as tolerated/necessary # Recent AYLA resolved -Creatinine now 1.2 down from 1.9 yesterday -Continue supportive care -Given bloody bowel movements patient will need to be n.p.o. will continue IV fluids # Restless leg syndrome -continue patient's home medication regimen #Type 2 diabetes mellitus -Patient has insulin pump, reasonable to continue basal rate -Glucose checks and sliding scale insulin ordered per protocol #GERD -Continue PPI #Depression/anxiety -Continue home medications #DVT ppx: SCDs Christi Colmenares MD Charges/Coding Visit Charges Inpatient E&M: 03453 Init Hosp L2
[2024-09-04] MEDS: levoFLOXacin IV 500 MG/100 ML BAG 100 MG IV (19:00)
[2024-09-04 19:01] VITALS: BMI 33.6
[2024-09-04] MEDS: metroNIDAZOLE 500 MG/100 ML BAG 100 MG IV (20:15)
[2024-09-04 20:17] VITALS: BP 125/61; PULSE 74; RESP 16; TEMP 36.9; O2SAT 100
[2024-09-04] MEDS: 0.9% Normal Saline (1000mL) 1,000 ML 75 ML IV (20:25)
[2024-09-04 20:36] LABS: Hematocrit 37.7 % (37-47); Hemoglobin 12.6 g/dL (12.0-15.0)
[2024-09-04] MEDS: Polyethylene Glycol 3350 BOWEL PREP PO (20:57)
--- NOTE | 2024-09-04 21:15 | EKG12_ITS ---
Test Reason : AM EKG Blood Pressure : */* mmHG Vent. Rate : 74 BPM Atrial Rate : 74 BPM P-R Int : 160 ms QRS Dur : 74 ms QT Int : 402 ms P-R-T Axes : 34 22 48 degrees QTcB Int : 446 ms Normal sinus rhythm Normal ECG When compared with ECG of 03-Sep-2024 23:04, No significant change was found Confirmed by GAB MOORE, DON ([id number]), video effects editor MARION LOYA ([id number]) on 09/06/2024 1:21:27 PM Referred By: Mathew Tello Confirmed By: DON DE GUZMAN MD
[2024-09-05] VITALS (12 sets, daily range): BP systolic 95–129; BP diastolic 50–82; PULSE 67–76; RESP 16–18; TEMP 36.3–37.3; O2SAT 94–100; BMI 33.5
[2024-09-05 02:02] LABS: Hematocrit 37.7 % (37-47); Hemoglobin 12.6 g/dL (12.0-15.0)
[2024-09-05] MEDS: metroNIDAZOLE 500 MG/100 ML BAG 100 MG IV ×3 (05:03→21:48)
[2024-09-05 05:47] LABS: Hematocrit 39.3 % (37-47); Hemoglobin 12.9 g/dL (12.0-15.0); Immature Granulocytes Count 0.090 X10^3/uL (0.0-0.0); Mean Corp Hgb Conc 32.8 g/dL (32-36); Mean Corpuscular Volume 87.9 fL (81-99); Mean Platelet Vol. 10.0 fl (6.2-12.0); NRBC Flagged by Analyzer 0 % (0-5); POSITIVE DIFFERENTIAL YES; Platelet Count 426 K/mm3 (150-450); RBC Distribution Width CV 14.4 % (11.6-14.6); RBC Distribution Width SD 46.1 fl (35.1-43.9); Red Blood Count 4.47 M/mm3 (4.2-5.4); White Blood Count 19.4 K/mm3 (4.4-11.0)
[2024-09-05 06:08] LABS: Anion Gap 11 (5-15); BUN 13 mg/dL (4-19); BUN/Creat Ratio 12.8 RATIO (10-20); Calcium,Total 9.4 mg/dL (7.6-11.0); Carbon Dioxide 26.3 mmol/L (21.0-32.0); Chloride 102 mmol/L (98-108); Estimated Creatinine Clearance 69.23 ml/min (50-250); Glucose 82 mg/dL (70-99); Potassium 3.9 mmol/L (3.3-5.1)
[2024-09-05 06:24] LABS: Differential Indicated SCAN CRITERIA MET
[2024-09-05 07:24] LABS: Differential Comment SCANNED
--- NOTE | 2024-09-05 08:58 | PN.HOSP_ITS ---
Subjective Subjective White count is still little bit elevated however she says that she feels much better, minimal pain in her left lower quadrant Objective Data Objective Data Vital Signs: Vital Signs Temp Pulse Resp BP Pulse Ox O2 Del Method 98 F 67 16 126/55 H 95 Room Air 09/05/24 08:14 09/05/24 08:14 09/05/24 08:14 09/05/24 08:14 09/05/24 08:14 09/05/24 08:14 Oxygen Delivery Method Room Air Weight: 196 lb 2.994 oz Body Mass Index (BMI) 33.5 Intake & Output: Intake and Output for Last 24 Hours 09/04/24 09/05/24 09/06/24 03:59 03:59 03:59 Intake Total 200 / 200 100 / 100 Balance 200 / 200 100 / 100 Lab / Micro Data 09/05/24 04:48 09/05/24 04:48 Labs: Laboratory Results - last 24 hr 09/04/24 16:05: WBC 16.6 H, RBC 4.20, Hgb 11.9 L, Hct 37.0, MCV 88.1, MCH 28.3, MCHC 32.2, RDW Std Deviation 45.3 H, RDW Coeff of Dickson 14.2, Plt Count 418, MPV 9.6, Immature Gran % (Auto) 0.500, Neut % (Auto) 77.7 H, Lymph % (Auto) 13.7 L, [place] % (Auto) 6.1, Eos % (Auto) 1.6, Baso % (Auto) 0.4, Absolute Neuts (auto) 12.9 H, Absolute Lymphs (auto) 2.28, Nucleated RBC % 0, Sodium 139, Potassium 3.1 L, Chloride 101, Carbon Dioxide 25.7, Anion Gap 13, BUN 19, Creatinine 1.12, Estim Creat Clear Calc 60.90, Est GFR (MDRD) Non-Af 58 L, BUN/Creatinine Ratio 16.8, Glucose 185 H, Calcium 8.9 09/04/24 20:16: Hgb 12.6, Hct 37.7 09/04/24 20:21: POC Glucose 107 H 09/05/24 01:54: Hgb 12.6, Hct 37.7 09/05/24 04:48: WBC 19.4 H, RBC 4.47, Hgb 12.9, Hct 39.3, MCV 87.9, MCH 28.9, MCHC 32.8, RDW Std Deviation 46.1 H, RDW Coeff of Dickson 14.4, Plt Count 426, MPV 10.0, Immature Gran % (Auto) 0.500, Neut % (Auto) 73.6 H, Lymph % (Auto) 15.9 L, [place] % (Auto) 8.5, Eos % (Auto) 1.1, Baso % (Auto) 0.4, Absolute Neuts (auto) 14.3 H, Absolute Lymphs (auto) 3.08, Nucleated RBC % 0, Differential Comment SCANNED, Sodium 139, Potassium 3.9, Chloride 102, Carbon Dioxide 26.3, Anion Gap 11, BUN 13, Creatinine 0.98, Estim Creat Clear Calc 69.23, Est GFR (MDRD) Non-Af 68, BUN/Creatinine Ratio 12.8, Glucose 82, Hemoglobin A1c 7.1 H, Calcium 9.4 Radiography Diagnostic Testing: Radiology Impression Abdomen/Pelvis CT 09/04/24 15:40 IMPRESSION: Left colonic and sigmoid colonic wall thickening and inflammation concerning for colitis. There is scattered colonic diverticuli without focal diverticulitis. No bowel obstruction. Reading Location: [facility] Physical Exam Narrative General: Alert, Oriented x3, Cooperative, No apparent distress HEENT: Atraumatic, PERRLA, EOMI, Normocephalic Oral: Moist Mucosa Neck: Supple, No JVD Lungs: Diminished, Normal air movement, No rhonchi, No wheeze, No rales Cardiovascular: Regular rate, Regular Rhythm, Normal S1, Normal S2, No murmurs Abdomen: Soft, minimal tenderness to palpation left lower quadrant, Non- Distended, No Hepato-splenomegaly Extremities: No edema, Capillary Refill Less than 3 Seconds Skin: No rashes, No breakdown Musculoskeletal: No Tenderness to Palpation of Joints or Extremities Neurological: No focal neurological deficits, Motor Exam 5/5 strength throughout, Sensory exam intact to light touch and pain Psych/Mental Status: Normal Affect, Appropriate Assessment & Plan Assessment/Plan (1) Gastrointestinal bleeding, lower: PLAN: Plan 1. Lower GI bleed secondary to colitis/GERD ? She has completed her bowel prep, possible colonoscopy today or tomorrow ? Appreciate gastroenterology's assistance ? Continue with broad-spectrum antibiotics ? Her hemoglobin is normal at 12.9 today ? Continue with PPI 2. Essential HTN ? Blood pressures are stable ? Continue with Coreg ? Will hold her diuretic given her lack of p.o. intake and her recent AYLA that resolved 3. DM2 ? Accu-Cheks ACHS ? Sliding scale insulin ? Will monitor and make adjustments as necessary 4. Restless leg syndrome/anxiety/depression ? Stable ? Continue with home medications DVT: SCDs Charges/Coding Visit Charges Inpatient E&M: 09608 Subs Hosp L2
[2024-09-05] MEDS: 0.9% Saline Lock 10 ML Syringe IV (09:25)
[2024-09-05] MEDS: levoFLOXacin IV 750 MG/150 ML BAG 100 MG IV (09:25)
--- NOTE | 2024-09-05 12:12 | EX.PCM.CON.G ---
HPI Consult Data Date of Consult: 09/05/24 HPI Narrative Reason for Consultation: Lower GI bleed HPI Narrative: SHILPA TEJEDA, is a 54 F who presentsed with abdominal pain and lower GI bleeding. Patient had multiple episodes of crampy abdominal pain which progressed to multiple episodes of diarrhea and then progressive bloody diarrhea. She has never had a problem like this in the past. She does not take any blood thinners. She has no surgical history. She has no family history of inflammatory bowel disease. She does not take NSAIDs on a regular basis but took naproxen recently. Denies other blood thinners. She is still having crampy abdominal pain as well. The only abdominal surgery that she previously had was a cholecystectomy and partial resection of the pancreas. She has also had splenectomy as well. She denies other bleeding diathesis. CT/Abdomen/Pelvis W IV Cont ONLY IMPRESSION: Left colonic and sigmoid colonic wall thickening and inflammation concerning for colitis. There is scattered colonic diverticuli without focal diverticulitis. No bowel obstruction. Her white count has increased to 19,000. [facility] Medical History Hypercholesteremia Hypertension Diabetes Home Medications ?Medication ?Instructions ?Recorded ?Last Taken ?Type atorvastatin 40 mg tablet 40 mg PO DAILY 09/04/24 09/03/24 History biotin 5 mg capsule 5 mg PO DAILY 09/04/24 09/04/24 History carvedilol 12.5 mg tablet 12.5 mg PO BID 09/04/24 09/04/24 History chlorthalidone 25 mg tablet 25 mg PO DAILY 09/04/24 09/04/24 History cholecalciferol (vitamin D3) 50 50 mcg PO DAILY 09/04/24 09/04/24 History mcg (2,000 unit) capsule (D3-2000) famotidine 20 mg tablet 20 mg PO QHS PRN heartburn 09/04/24 09/03/24 History fluoxetine 20 mg capsule 20 mg PO DAILY 09/04/24 09/04/24 History insulin aspart U-100 100 unit/mL 100 unit subcut DAILY 09/04/24 09/04/24 History subcutaneous solution multivitamin (Daily Value tablet) 1 tab PO DAILY 09/04/24 09/04/24 History naproxen sodium 220 mg tablet 220 mg PO BID PRN pain 09/04/24 09/03/24 History (Aleve) omeprazole 40 mg capsule,delayed 40 mg PO DAILY 09/04/24 09/04/24 History release pramipexole 1 mg tablet 1 mg PO QHS 09/04/24 09/03/24 History vibegron 75 mg tablet (Gemtesa) 75 mg PO DAILY 09/04/24 09/03/24 History Allergy/AdvReac Type Severity Reaction Status Date / Time bupropion (From Wellbutrin) Allergy Severe Angioedema Verified 09/04/24 19:27 venlafaxine (From Effexor) Allergy Severe Hives Verified 09/04/24 19:27 amoxicillin Allergy Mild Hives Verified 09/04/24 19:27 Sulfa (Sulfonamide AdvReac Mild OTHER Verified 09/04/24 19:27 Antibiotics) ferrous sulfate (From AdvReac Other Verified 09/04/24 19:29 Sean-Iron) Social History Smoking Status: Never smoker ROS Constitutional Constitutional: Denies fatigue, fever(s), poor appetite, weight gain or weight loss Gastrointestinal Gastrointestinal: Denies belching, bloating, change in bowel habits, change in stool character, chewing difficulty, coffee ground emesis, constipation, cramping, diarrhea, dyspepsia, dysphagia, early satiety, excessive flatus, fecal incontinence, heartburn, hematemesis, hematochezia, hemorrhoids, loose stools, melena, nausea, odynophagia, rectal bleeding, tenesmus, vomiting or weight changes Physical Exam Const alert, oriented x3, no apparent distress and healthy appearing General Appearance: cooperative GI normal to inspection, nondistended, normoactive bowel sounds, soft to palpation, non-tender and non-distended Percussion: normal to percussion Rectal Exam: deferred Lab / Micro Data 09/05/24 04:48 09/05/24 04:48 Labs: Laboratory Results - last 24 hr 09/04/24 16:05: WBC 16.6 H, RBC 4.20, Hgb 11.9 L, Hct 37.0, MCV 88.1, MCH 28.3, MCHC 32.2, RDW Std Deviation 45.3 H, RDW Coeff of Dickson 14.2, Plt Count 418, MPV 9.6, Immature Gran % (Auto) 0.500, Neut % (Auto) 77.7 H, Lymph % (Auto) 13.7 L, [place] % (Auto) 6.1, Eos % (Auto) 1.6, Baso % (Auto) 0.4, Absolute Neuts (auto) 12.9 H, Absolute Lymphs (auto) 2.28, Nucleated RBC % 0, Sodium 139, Potassium 3.1 L, Chloride 101, Carbon Dioxide 25.7, Anion Gap 13, BUN 19, Creatinine 1.12, Estim Creat Clear Calc 60.90, Est GFR (MDRD) Non-Af 58 L, BUN/Creatinine Ratio 16.8, Glucose 185 H, Calcium 8.9 09/04/24 20:16: Hgb 12.6, Hct 37.7 09/04/24 20:21: POC Glucose 107 H 09/05/24 01:54: Hgb 12.6, Hct 37.7 09/05/24 04:48: WBC 19.4 H, RBC 4.47, Hgb 12.9, Hct 39.3, MCV 87.9, MCH 28.9, MCHC 32.8, RDW Std Deviation 46.1 H, RDW Coeff of Dickson 14.4, Plt Count 426, MPV 10.0, Immature Gran % (Auto) 0.500, Neut % (Auto) 73.6 H, Lymph % (Auto) 15.9 L, [place] % (Auto) 8.5, Eos % (Auto) 1.1, Baso % (Auto) 0.4, Absolute Neuts (auto) 14.3 H, Absolute Lymphs (auto) 3.08, Nucleated RBC % 0, Differential Comment SCANNED, Sodium 139, Potassium 3.9, Chloride 102, Carbon Dioxide 26.3, Anion Gap 11, BUN 13, Creatinine 0.98, Estim Creat Clear Calc 69.23, Est GFR (MDRD) Non-Af 68, BUN/Creatinine Ratio 12.8, Glucose 82, Hemoglobin A1c 7.1 H, Calcium 9.4 Imaging Radiology Impression Abdomen/Pelvis CT 09/04/24 15:40 IMPRESSION: Left colonic and sigmoid colonic wall thickening and inflammation concerning for colitis. There is scattered colonic diverticuli without focal diverticulitis. No bowel obstruction. Reading Location: [facility] Assessment & Plan Assessment/Plan (1) Gastrointestinal bleeding, lower: PLAN: Plan # 54-year-old comes in with abdominal pain followed by diarrhea and multiple episodes of lower GI bleeding.CT scan does show colitis. Differential diagnosis does include ischemic colitis, infectious colitis, ulcerative colitis. Patient should undergo colonoscopy with biopsies and evaluate lower GI tract. She is okay to continue antibiotics for now. Recommend to check stool cultures and C. difficile. She was explained alternatives, risk and benefits include not withstanding bleeding, pressure, subs, perforation, need for return to . She will have an ASA of 3. Charges/Coding Visit Charges Inpatient E&M: 53660 Init Hosp L3
[2024-09-05] MEDS: Lactated Ringers 1,000 ML 15 ML IV (12:47)
--- NOTE | 2024-09-05 13:20 | PCM.PRE.AN2 ---
ASA Classification* ASA Classification ASA Classification: 2 Assessment & Plan Anesthesia* Anesthesia Assessment Anesthesia Assessment: Discussed sedation and/or anesthesia options, risks, benefits, and alternatives with patient/parents/legal guardian/POA. Questions invited. The patient/parents/legal guardian/POA seems to understand and agrees to proceed with anesthesia plan. Reviewed the physical assessment, medical history, allergy history and patient home medications list prior to surgery/procedure/anesthetic and documented any changes. Performed airway and anesthesia risk assessments. Anesthesia Type Anesthesia Type: MAC History Source History Obtained from:: Patient and Chart Anesthesia Focused Assessment* Temperature: 98 F Pulse Rate: 68 Blood Pressure: 122/82 Respiratory Rate: 16 Pulse Ox: 98 Airway Assessment Mouth opens: >3 cm Mallampati Score: II Teeth Condition: Intact Neck Range of motion (ROM): Full ROM Labs Anesthesia Preop lab: CBC WBC 19.4 K/mm3 (4.4-11.0) H 09/05/24 04:48 09/05/24 RBC 4.47 M/mm3 (4.2-5.4) 09/05/24 04:48 09/05/24 Hgb 12.9 g/dL (12.0-15.0) 09/05/24 04:48 09/05/24 Hct 39.3 % (37-47) 09/05/24 04:48 09/05/24 Plt Count 426 K/mm3 (150-450) 09/05/24 04:48 09/05/24 CHEMISTRY Potassium 3.9 mmol/L (3.3-5.1) 09/05/24 04:48 09/05/24 Sodium 139 mmol/L (133-145) 09/05/24 04:48 09/05/24 BUN 13 mg/dL (4-19) 09/05/24 04:48 09/05/24 Creatinine 0.98 mg/dL (0.70-1.20) 09/05/24 04:48 09/05/24 Glucose 82 mg/dL (70-99) 09/05/24 04:48 09/05/24 POC Glucose 107 mg/dL (74-106) H 09/04/24 20:21 09/04/24 COAG Pre-Assessment Diagnosis/Proposed Procedure Planned Operative Procedure(s): colonoscopy Anesthesia History Anesthesia History - director of infection 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 When Was Last Pacemaker Check QUESTION #4 FULL TEXT: You/Your Family Experience fever (hyperthermia) with Anesthesia Last Oral Intake Last Oral intake: Last Oral Intake NPO since 00:00 09/05/24 09:30 Meds taken in AM with sips of Yes 09/05/24 09:30 water? 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 - director of infection prevention: PONV - director of infection prevention Female HX of Motion Sickness HX of N/V After Surgery Non-Smoker Duration of Surgery greater than 60 minutes Number of Risk Factors PONV Score Height & Weight Height & Weight: Anesthesia: Height & Weight Height 5 ft 4.17 in 09/05/24 11:02 Weight: 88.989 kg 09/05/24 11:02 Body Mass Index (BMI) 33.5 09/05/24 09:30 Respiratory Assessment Respiratory Assessment - director of infection prevention: Respiratory Tract Infection Hx - director of infection prevention Hx Respiratory Tract Infection No 09/04/24 20:42 STOP Sleep Apnea STOP Sleep Apnea - director of infection prevention: STOP Sleep Apnea - director of infection prevention Hx Hypertension Yes 09/04/24 19:01 Hx Sleep Apnea No: they said I did but 09/04/24 19:01 didnt do anything about it CPAP BIPAP Do you snore loudly (louder No 09/04/24 19:01 than talking or can be heard Do you often feel tired/ Yes 09/04/24 19:01 fatigued/ sleepy during daytime? Has anyone observed you stop No 09/04/24 19:01 breathing during sleep? STOP Results Positive 09/04/24 19:01 QUESTION #5 FULL TEXT : Do you snore loudly (louder than talking or can be heard through closed doors)? 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 Specify any problems Hx of Preganancy in last 3 No 09/04/24 19:01 Months Nurse Filling Out Transfusion TCLEVIDEN 09/04/24 19:01 & Questions: Date: 09/04/24 09/04/24 19:01 Time: 19:09/04/24 19:01 Patient unable to answer at this time (ie. confused, unrespo /Reproduction History /Reproductive History - director of infection prevention: /Reproductive Hx- director of infection prevention Hx Now No 09/04/24 20:42 Gestational Age (in weeks): EDC: Hx Hx Para Hx Section SAB No 09/04/24 20:42 Active Medications Active Medications: Current Medications Generic Name Dose Route Start Last Admin Trade Name Freq PRN Reason Stop Dose Admin Acetaminophen 650 mg 09/04/24 19:32 09/04/24 20:32 Acetaminophen 325 Mg Tablet PO 650 mg Q6H PRN PRN Administration Pain 1-10 Or Fever >100.7 Albuterol Sulfate 2.5 mg 09/04/24 19:32 Albuterol 2.5 Mg/3 Ml Vial.Neb. INHALATION Q2H PRN PRN SOB &/OR WHEEZING Atorvastatin Calcium 40 mg 09/04/24 22:00 09/04/24 20:32 Atorvastatin Calcium 40 Mg Tablet PO 40 mg QHS NATHAN Administration Carvedilol 3.125 mg 09/05/24 08:00 09/05/24 09:25 Carvedilol 3.125 Mg Tablet PO 3.125 mg BIDCM NATHAN Administration Protocol Fluoxetine HCl 20 mg 09/05/24 10:00 09/05/24 09:25 Fluoxetine 20 Mg Capsule PO 20 mg DAILY NATHAN Administration Glucagon 1 mg 09/04/24 19:32 Glucagon 1 Mg/Ml Syringe IM X1 PRN HYPOGLYCEMIA Protocol Sodium Chloride 250 mls @ 15 mls/hr 09/04/24 19:02 IV .[id number] PRN Saline Flush Sodium Chloride 250 mls @ 15 mls/hr 09/04/24 19:02 IV .[id number] PRN Additional IVPB Infusion Dextrose 250 mls @ 0 mls/hr 09/04/24 19:32 Dextrose 10%-Water IV .Q0M PRN HYPOGLYCEMIA Protocol As Directed Levofloxacin 750 mg in 150 mls @ 100 mls/hr 09/05/24 10:00 09/05/24 10:59 Levaquin Iv IV Infused Q24 NATHAN Infusion Metronidazole 500 mg in 100 mls @ 100 mls/hr 09/04/24 22:00 09/05/24 06:03 Flagyl IV Infused Q8 NATHAN Infusion Lactated Ringer's 1,000 mls @ 15 mls/hr 09/05/24 12:45 09/05/24 12:47 IV 15 mls/hr .Q48H NATHAN Administration Insulin Aspart 0 unit 09/04/24 19:32 09/04/24 20:25 Insulin Basal Pump SC Not Given UD [facility] Insulin Human Lispro 0 unit 09/04/24 22:00 09/05/24 11:08 Insulin Lispro 100 Unit/Ml Insuln.Pen SC Not Given ACHS NATHAN Protocol Melatonin 10 mg 09/04/24 19:32 Melatonin 10 Mg Tablet PO QHS PRN PRN INSOMNIA Ondansetron HCl 4 mg 09/04/24 19:32 Ondansetron 4 Mg/2 Ml Vial IV Q8H PRN PRN NAUSEA/VOMITING Pantoprazole Sodium 40 mg 09/05/24 10:00 09/05/24 09:22 Pantoprazole Sodium 40 Mg Tablet PO Not Given DAILY NATHAN Pramipexole Dihydrochloride 1 mg 09/04/24 22:00 09/04/24 20:56 Pramipexole Di-Hcl 1 Mg Tablet PO 1 mg QHS NATHAN Administration Senna/Docusate Sodium 2 tablet 09/04/24 19:32 Senna/Docusate Sodium 1 Tablet PO BID PRN PRN Constipation Sodium Chloride 10 - 40 ml 09/04/24 19:02 09/05/24 09:25 0.9% Saline Lock 10 Ml Syringe IV 10 ml UD PRN Administration SALINE FLUSH [facility] Medical History Hypercholesteremia Hypertension Diabetes Home Medications ?Medication ?Instructions ?Recorded ?Last Taken ?Type atorvastatin 40 mg tablet 40 mg PO DAILY 09/04/24 09/03/24 History biotin 5 mg capsule 5 mg PO DAILY 09/04/24 09/04/24 History carvedilol 12.5 mg tablet 12.5 mg PO BID 09/04/24 09/04/24 History chlorthalidone 25 mg tablet 25 mg PO DAILY 09/04/24 09/04/24 History cholecalciferol (vitamin D3) 50 50 mcg PO DAILY 09/04/24 09/04/24 History mcg (2,000 unit) capsule (D3-2000) famotidine 20 mg tablet 20 mg PO QHS PRN heartburn 09/04/24 09/03/24 History fluoxetine 20 mg capsule 20 mg PO DAILY 09/04/24 09/04/24 History insulin aspart U-100 100 unit/mL 100 unit subcut DAILY 09/04/24 09/04/24 History subcutaneous solution multivitamin (Daily Value tablet) 1 tab PO DAILY 09/04/24 09/04/24 History naproxen sodium 220 mg tablet 220 mg PO BID PRN pain 09/04/24 09/03/24 History (Aleve) omeprazole 40 mg capsule,delayed 40 mg PO DAILY 09/04/24 09/04/24 History release pramipexole 1 mg tablet 1 mg PO QHS 09/04/24 09/03/24 History vibegron 75 mg tablet (Gemtesa) 75 mg PO DAILY 09/04/24 09/03/24 History Allergy/AdvReac Type Severity Reaction Status Date / Time bupropion (From Wellbutrin) Allergy Severe Angioedema Verified 09/04/24 19:27 venlafaxine (From Effexor) Allergy Severe Hives Verified 09/04/24 19:27 amoxicillin Allergy Mild Hives Verified 09/04/24 19:27 Sulfa (Sulfonamide AdvReac Mild OTHER Verified 09/04/24 19:27 Antibiotics) ferrous sulfate (From AdvReac Other Verified 09/04/24 19:29 Sean-Iron) Social History Smoking Status: Never smoker Review of Systems (Anesthesia) ROS Narrative System reviewed and no additional complaints, except as documented.
--- NOTE | 2024-09-05 13:22 | PCM.PRE.AN2 ---
ASA Classification* ASA Classification ASA Classification: 3 Assessment & Plan Anesthesia* Anesthesia Assessment Anesthesia Assessment: Discussed sedation and/or anesthesia options, risks, benefits, and alternatives with patient/parents/legal guardian/POA. Questions invited. The patient/parents/legal guardian/POA seems to understand and agrees to proceed with anesthesia plan. Reviewed the physical assessment, medical history, allergy history and patient home medications list prior to surgery/procedure/anesthetic and documented any changes. Performed airway and anesthesia risk assessments. Anesthesia Type Anesthesia Type: General and MAC History Source History Obtained from:: Patient and Chart Anesthesia Focused Assessment* Temperature: 98 F Pulse Rate: 68 Blood Pressure: 122/82 Respiratory Rate: 16 Pulse Ox: 98 Airway Assessment Mouth opens: >3 cm Mallampati Score: III Teeth Condition: Intact Neck Range of motion (ROM): Full ROM Labs Anesthesia Preop lab: CBC WBC 19.4 K/mm3 (4.4-11.0) H 09/05/24 04:48 09/05/24 RBC 4.47 M/mm3 (4.2-5.4) 09/05/24 04:48 09/05/24 Hgb 12.9 g/dL (12.0-15.0) 09/05/24 04:48 09/05/24 Hct 39.3 % (37-47) 09/05/24 04:48 09/05/24 Plt Count 426 K/mm3 (150-450) 09/05/24 04:48 09/05/24 CHEMISTRY Potassium 3.9 mmol/L (3.3-5.1) 09/05/24 04:48 09/05/24 Sodium 139 mmol/L (133-145) 09/05/24 04:48 09/05/24 BUN 13 mg/dL (4-19) 09/05/24 04:48 09/05/24 Creatinine 0.98 mg/dL (0.70-1.20) 09/05/24 04:48 09/05/24 Glucose 82 mg/dL (70-99) 09/05/24 04:48 09/05/24 POC Glucose 107 mg/dL (74-106) H 09/04/24 20:21 09/04/24 COAG Pre-Assessment Diagnosis/Proposed Procedure Planned Operative Procedure(s): colonoscopy Anesthesia History 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 When Was Last Pacemaker Check QUESTION #4 FULL TEXT: You/Your Family Experience fever (hyperthermia) with Anesthesia Last Oral Intake Last Oral intake: Last Oral Intake NPO since 00:00 09/05/24 09:30 Meds taken in AM with sips of Yes 09/05/24 09:30 water? 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 Female HX of Motion Sickness HX of N/V After Surgery Non-Smoker Duration of Surgery greater than 60 minutes Number of Risk Factors PONV Score Height & Weight Height & Weight: Anesthesia: Height & Weight Height 5 ft 4.17 in 09/05/24 11:02 Weight: 88.989 kg 09/05/24 11:02 Body Mass Index (BMI) 33.5 09/05/24 09:30 Respiratory Assessment Respiratory Assessment - slot shift supervisor: Respiratory Tract Infection Hx - slot shift supervisor Hx Respiratory Tract Infection No 09/04/24 20:42 STOP Sleep Apnea STOP Sleep Apnea - slot shift supervisor: STOP Sleep Apnea - slot shift supervisor Hx Hypertension Yes 09/04/24 19:01 Hx Sleep Apnea No: they said I did but 09/04/24 19:01 didnt do anything about it CPAP BIPAP Do you snore loudly (louder No 09/04/24 19:01 than talking or can be heard Do you often feel tired/ Yes 09/04/24 19:01 fatigued/ sleepy during daytime? Has anyone observed you stop No 09/04/24 19:01 breathing during sleep? STOP Results Positive 09/04/24 19:01 QUESTION #5 FULL TEXT : Do you snore loudly (louder than talking or can be heard through closed doors)? 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 Specify any problems Hx of Preganancy in last 3 No 09/04/24 19:01 Months Nurse Filling Out Transfusion TCLEVIDEN 09/04/24 19:01 & Questions: Date: 09/04/24 09/04/24 19:01 Time: 19:09/04/24 19:01 Patient unable to answer at this time (ie. confused, unrespo /Reproduction History /Reproductive History - slot shift supervisor: /Reproductive Hx- slot shift supervisor Hx Now No 09/04/24 20:42 Gestational Age (in weeks): EDC: Hx Hx Para Hx Section SAB No 09/04/24 20:42 Active Medications Active Medications: Current Medications Generic Name Dose Route Start Last Admin Trade Name Freq PRN Reason Stop Dose Admin Acetaminophen 650 mg 09/04/24 19:32 09/04/24 20:32 Acetaminophen 325 Mg Tablet PO 650 mg Q6H PRN PRN Administration Pain 1-10 Or Fever >100.7 Albuterol Sulfate 2.5 mg 09/04/24 19:32 Albuterol 2.5 Mg/3 Ml Vial.Neb. INHALATION Q2H PRN PRN SOB &/OR WHEEZING Atorvastatin Calcium 40 mg 09/04/24 22:00 09/04/24 20:32 Atorvastatin Calcium 40 Mg Tablet PO 40 mg QHS NATHAN Administration Carvedilol 3.125 mg 09/05/24 08:00 09/05/24 09:25 Carvedilol 3.125 Mg Tablet PO 3.125 mg BIDCM NATHAN Administration Protocol Fluoxetine HCl 20 mg 09/05/24 10:00 09/05/24 09:25 Fluoxetine 20 Mg Capsule PO 20 mg DAILY NATHAN Administration Glucagon 1 mg 09/04/24 19:32 Glucagon 1 Mg/Ml Syringe IM X1 PRN HYPOGLYCEMIA Protocol Sodium Chloride 250 mls @ 15 mls/hr 09/04/24 19:02 IV .[id number] PRN Saline Flush Sodium Chloride 250 mls @ 15 mls/hr 09/04/24 19:02 IV .[id number] PRN Additional IVPB Infusion Dextrose 250 mls @ 0 mls/hr 09/04/24 19:32 Dextrose 10%-Water IV .Q0M PRN HYPOGLYCEMIA Protocol As Directed Levofloxacin 750 mg in 150 mls @ 100 mls/hr 09/05/24 10:00 09/05/24 10:59 Levaquin Iv IV Infused Q24 NATHAN Infusion Metronidazole 500 mg in 100 mls @ 100 mls/hr 09/04/24 22:00 09/05/24 06:03 Flagyl IV Infused Q8 NATHAN Infusion Lactated Ringer's 1,000 mls @ 15 mls/hr 09/05/24 12:45 09/05/24 12:47 IV 15 mls/hr .Q48H NATHAN Administration Insulin Aspart 0 unit 09/04/24 19:32 09/04/24 20:25 Insulin Basal Pump SC Not Given UD ON LICENSE OF [facility] Insulin Human Lispro 0 unit 09/04/24 22:00 09/05/24 11:08 Insulin Lispro 100 Unit/Ml Insuln.Pen SC Not Given ACHS NATHAN Protocol Melatonin 10 mg 09/04/24 19:32 Melatonin 10 Mg Tablet PO QHS PRN PRN INSOMNIA Ondansetron HCl 4 mg 09/04/24 19:32 Ondansetron 4 Mg/2 Ml Vial IV Q8H PRN PRN NAUSEA/VOMITING Pantoprazole Sodium 40 mg 09/05/24 10:00 09/05/24 09:22 Pantoprazole Sodium 40 Mg Tablet PO Not Given DAILY NATHAN Pramipexole Dihydrochloride 1 mg 09/04/24 22:00 09/04/24 20:56 Pramipexole Di-Hcl 1 Mg Tablet PO 1 mg QHS NATHAN Administration Senna/Docusate Sodium 2 tablet 09/04/24 19:32 Senna/Docusate Sodium 1 Tablet PO BID PRN PRN Constipation Sodium Chloride 10 - 40 ml 09/04/24 19:02 09/05/24 09:25 0.9% Saline Lock 10 Ml Syringe IV 10 ml UD PRN Administration SALINE FLUSH [facility] Medical History Hypercholesteremia Hypertension Diabetes Home Medications ?Medication ?Instructions ?Recorded ?Last Taken ?Type atorvastatin 40 mg tablet 40 mg PO DAILY 09/04/24 09/03/24 History biotin 5 mg capsule 5 mg PO DAILY 09/04/24 09/04/24 History carvedilol 12.5 mg tablet 12.5 mg PO BID 09/04/24 09/04/24 History chlorthalidone 25 mg tablet 25 mg PO DAILY 09/04/24 09/04/24 History cholecalciferol (vitamin D3) 50 50 mcg PO DAILY 09/04/24 09/04/24 History mcg (2,000 unit) capsule (D3-2000) famotidine 20 mg tablet 20 mg PO QHS PRN heartburn 09/04/24 09/03/24 History fluoxetine 20 mg capsule 20 mg PO DAILY 09/04/24 09/04/24 History insulin aspart U-100 100 unit/mL 100 unit subcut DAILY 09/04/24 09/04/24 History subcutaneous solution multivitamin (Daily Value tablet) 1 tab PO DAILY 09/04/24 09/04/24 History naproxen sodium 220 mg tablet 220 mg PO BID PRN pain 09/04/24 09/03/24 History (Aleve) omeprazole 40 mg capsule,delayed 40 mg PO DAILY 09/04/24 09/04/24 History release pramipexole 1 mg tablet 1 mg PO QHS 09/04/24 09/03/24 History vibegron 75 mg tablet (Gemtesa) 75 mg PO DAILY 09/04/24 09/03/24 History Allergy/AdvReac Type Severity Reaction Status Date / Time bupropion (From Wellbutrin) Allergy Severe Angioedema Verified 09/04/24 19:27 venlafaxine (From Effexor) Allergy Severe Hives Verified 09/04/24 19:27 amoxicillin Allergy Mild Hives Verified 09/04/24 19:27 Sulfa (Sulfonamide AdvReac Mild OTHER Verified 09/04/24 19:27 Antibiotics) ferrous sulfate (From AdvReac Other Verified 09/04/24 19:29 Sean-Iron) Social History Smoking Status: Never smoker Review of Systems (Anesthesia) ROS Narrative System reviewed and no additional complaints, except as documented.
--- NOTE | 2024-09-05 13:30 | COLBX_PTH ---
PATIENT: SHILPA DELUCA LOC: [facility]3 U#:[id number] AGE/SX: 54/F ROOM: PA321 RE09/04/[address]: Dr. Luis Dunn MD : 1970 BED: 1 DIS: 09/06/2024 SPEC #: [id number] RECD: 09/05/24 17:52 STATUS: MART LONG #: [id number] CECELIA: 09/05/24 13:[address]: Rajiv Sherman DEPT: SURGICAL PATHOLOGY RECD BY: Liborio Palacio ENTERED: 09/06/24 09:54 SP TYPE: COLON BX OTHR DR: MD MARCELO Webster DO Dr. Nicholas F Kotsonis, MD Dr. Paige Pierce, MD Tissues: A - COLON BIOPSY Procedures: Surgery Specimen Level IV HEADER OPERATION: Colonoscopy with biopsy PRE-OP DIAGNOSIS: Gastrointestinal bleeding, lower TISSUE SUBMITTED: A- Left side of colon biopsy MICROSCOPIC DIAGNOSIS A. Colon, left side, biopsy: - Acute colitis with superficial necrosis/ulceration - see note. Note: the histologic differential diagnosis includes infection, ischemia, diverticular disease-associated colitis, and medication injury. Recommend correlation with clinical, endoscopic, and microbiology findings. MICROSCOPIC DESCRIPTION Slides are reviewed. GROSS DESCRIPTION A. Received in fixative is one container labeled with the patient's name and designated Left side of colon biopsy. The specimen consists of multiple irregular fragments of light boo soft tissue that in aggregate measure 0.9 x 0.3 x 0.1 cm. The specimen is totally submitted in one cassette. MI 09/06/2024 CPT:74744
--- NOTE | 2024-09-05 14:00 | OP.CCLET_ITS ---
09/05/2024 Priscilla Avila Do Re : Colonoscopy procedure for Luli Rodriguez Dear [place] This procedure was performed on August. My impressions and recommendations are as follows: Impressions : - Segmental severe inflammation was found in the rectum, in the recto-sigmoid colon, in the sigmoid colon, in the descending colon and at the splenic flexure secondary to ischemic colitis. Biopsied. Recommendations : - Return patient to [facility] for ongoing care. - Resume previous diet. - Continue present medications. - Await pathology results. - Repeat colonoscopy within 3 months for surveillance. My findings are described in the full procedure note, which is enclosed. If I can be of further assistance, please feel free to contact me at . Sincerely, Rajiv Sherman, 09/05/2024 2:00:02 PM This report has been signed electronically.
--- NOTE | 2024-09-05 14:00 | OP.COLON_ITS ---
Patient Name: Luli Rodriguez Procedure Date: 09/05/2024 1:24 PM Date of : 1970 Age: 54 Procedure: Colonoscopy Indications: Hematochezia Providers: Rajiv Sherman DO Medicines: Monitored Anesthesia Care Patient Profile: This is a 54 year old female. Refer to note in patient chart for documentation of history and physical. Last Colonoscopy: date unknown. Unable to locate last colonoscopy report. Complications: No immediate complications. Procedure: Pre-Anesthesia Assessment: - Prior to the procedure, a History and Physical was performed, and patient medications and allergies were reviewed. The patient is competent. The risks and benefits of the procedure and the sedation options and risks were discussed with the patient. All questions were answered and informed consent was obtained. Patient identification and proposed procedure were verified by the physician in the pre-procedure area. Mental Status Examination: alert and oriented. Airway Examination: normal oropharyngeal airway and neck mobility. Respiratory Examination: clear to auscultation. CV Examination: normal. Prophylactic Antibiotics: The patient does not require prophylactic antibiotics. Prior Anticoagulants: The patient has taken no anticoagulant or antiplatelet agents except for NSAID medication. ASA Grade Assessment: II - A patient with mild systemic disease. After reviewing the risks and benefits, the patient was deemed in satisfactory condition to undergo the procedure. The anesthesia plan was to use monitored anesthesia care (MAC). Immediately prior to administration of medications, the patient was re-assessed for adequacy to receive sedatives. The heart rate, respiratory rate, oxygen saturations, blood pressure, adequacy of pulmonary ventilation, and response to care were monitored throughout the procedure. The physical status of the patient was re-assessed after the procedure. After I obtained informed consent, the scope was passed under direct vision. Throughout the procedure, the patient's blood pressure, pulse, and oxygen saturations were monitored continuously. The adult colonoscope was introduced through the anus and advanced to the cecum, identified by appendiceal orifice and ileocecal valve. The colonoscopy was performed without difficulty. The patient tolerated the procedure well. The quality of the bowel preparation was adequate. The ileocecal valve, appendiceal orifice, and rectum were photographed. Scope In: 1:39:40 PM Scope Withdrawal Time 0 hours 7 minutes 52 seconds Scope Out: 1:53:42 PM Total Procedure Duration Time 0 hours 14 minutes 2 seconds Findings: The perianal and digital rectal examinations were normal. Segmental severe inflammation characterized by congestion (edema), erosions, erythema and granularity was found in the rectum, in the recto-sigmoid colon, in the sigmoid colon, in the descending colon and at the splenic flexure. Biopsies were taken with a cold forceps for histology. Verification of patient identification for the specimen was done. Estimated blood loss was minimal. Impression: - Segmental severe inflammation was found in the rectum, in the recto-sigmoid colon, in the sigmoid colon, in the descending colon and at the splenic flexure secondary to ischemic colitis. Biopsied. Recommendation: - Return patient to hospital [facility] for ongoing care. - Resume previous diet. - Continue present medications. - Await pathology results. - Repeat colonoscopy within 3 months for surveillance. Procedure Code(s): --- Professional --- 81313, Colonoscopy, flexible; with biopsy, single or multiple CPT copyright 2021 [employer]. All rights reserved. The codes documented in this report are preliminary and upon facility administrator review may be revised to meet current compliance requirements. Rajiv Sherman DO 09/05/2024 2:00:02 PM This report has been signed electronically. Number of Addenda: 0 Note Initiated On: 09/05/2024 1:24 PM
--- NOTE | 2024-09-05 14:05 | PCM.POST.ANE ---
Anesthesia: Postop Eval I Current Vital Signs Temperature: 98.5 F Pulse Rate: 71 Blood Pressure: 98/56 Respiratory Rate: 16 Pulse Ox: 94 Oxygen Delivery Method: Room Air Assessment Airway patent: Yes Spontaneous unlabored respirations: Yes Mental status: Asleep nausea: No Vomiting: No Anesthesia Complication: No Fluid Hydration Crystalloid volume administer (ml): 600 Total IV fluid infused: 600 Progress Note Anesthesia document: Postop Eval 1 completed: Yes
[2024-09-05 15:32] LABS: Hematocrit 35.6 % (37-47); Hemoglobin 11.3 g/dL (12.0-15.0)
[2024-09-06 05:08] LABS: Hematocrit 36.2 % (37-47); Hemoglobin 11.7 g/dL (12.0-15.0); Immature Granulocytes Count 0.080 X10^3/uL (0.0-0.0); Mean Corp Hgb Conc 32.3 g/dL (32-36); Mean Corpuscular Volume 88.1 fL (81-99); Mean Platelet Vol. 9.6 fl (6.2-12.0); NRBC Flagged by Analyzer 0 % (0-5); Platelet Count 378 K/mm3 (150-450); RBC Distribution Width CV 14.2 % (11.6-14.6); RBC Distribution Width SD 45.9 fl (35.1-43.9); Red Blood Count 4.11 M/mm3 (4.2-5.4); White Blood Count 15.2 K/mm3 (4.4-11.0)
[2024-09-06] MEDS: metroNIDAZOLE 500 MG/100 ML BAG 100 MG IV (05:17)
[2024-09-06] MEDS: 0.9% Normal Saline (250mL Bag) 250 ML 15 ML IV (05:17)
[2024-09-06 05:20] VITALS: BP 116/64; PULSE 62; RESP 16; TEMP 37; O2SAT 97
[2024-09-06 07:25] LABS: Anion Gap 13 (5-15); BUN 10 mg/dL (4-19); BUN/Creat Ratio 10.6 RATIO (10-20); Calcium,Total 9.3 mg/dL (7.6-11.0); Carbon Dioxide 24.7 mmol/L (21.0-32.0); Chloride 103 mmol/L (98-108); Estimated Creatinine Clearance 75.38 ml/min (50-250); Glucose 140 mg/dL (70-99); Potassium 3.6 mmol/L (3.3-5.1)
--- NOTE | 2024-09-06 08:29 | DCINST_ITS ---
Discharge Instructions DC O2, CPAP, BIPAP needs Home O2 Discharge instructions: No Dressing / Incision Discharge Activity: Return to Normal Activity Dressing / Incision Call your doctor if you observe: Fever of 101 or Higher, Shortness of breath, Dizziness, Fainting spells, Swelling in the ankles, Chest pain and Increased palpitations (irregular heartbeat) Follow Up Care Test Results: Test results from this visit will be discussed in further detail at your follow- up appointment, if applicable. Discharge Plan Admission Admit Date/Time: 09/04/24 18:41 Attending Provider: Luis Dunn Primary Care Provider: MARCELO HOLGUIN Consulting Providers: Christi Colmenares Instructions Patient Instructions: Ischemic Colitis, ED Understanding Colitis Discharge Orders/Prescriptions Prescriptions: New carvedilol 3.125 mg Tablet 3.125 mg PO BIDCM 30 Days Qty: 60 0RF metronidazole 500 mg tablet 500 mg PO Q8H 7 Days Qty: 21 0RF levofloxacin 500 mg tablet 500 mg PO DAILY Qty: 7 0RF Continued pramipexole 1 mg tablet 1 mg PO QHS atorvastatin 40 mg tablet 40 mg PO DAILY omeprazole 40 mg capsule,delayed release(DR/EC) 40 mg PO DAILY famotidine 20 mg tablet 20 mg PO QHS PRN (Reason: heartburn) insulin aspart U-100 100 unit/mL solution 100 unit subcut DAILY fluoxetine 20 mg capsule 20 mg PO DAILY Gemtesa 75 mg tablet 75 mg PO DAILY multivitamin [Daily Value] Tablet 1 tab PO DAILY cholecalciferol (vitamin D3) [D3-2000] 50 mcg (2,000 unit) capsule 50 mcg PO DAILY biotin 5 mg capsule 5 mg PO DAILY naproxen sodium [Aleve] 220 mg tablet 220 mg PO BID PRN (Reason: pain) Held chlorthalidone 25 mg tablet 25 mg PO DAILY Hold Instructions: Resume on 09/13/24. Discontinued carvedilol 12.5 mg tablet 12.5 mg PO BID Referrals / Follow Up: MARCELO HOLGUIN DO [Primary Care Provider] - Within 1 Week Rajiv Sherman DO [Med Staff - Active Staff] - Within 1 Month Disposition Disposition (needs filled in before D/C Order can be placed): Home, Self Care
[2024-09-06 08:30] VITALS: BP 117/67; PULSE 67; RESP 18; TEMP 36.4; O2SAT 97
--- NOTE | 2024-09-06 09:14 | CASEMGMT ---
Addendum entered by Justina Simon 09/06/24 09:20: CORINNE FARNSWORTH provided pt with [employer] handout for summer crisis program as well as [facility] information given by SW. Pt thankful for the information. Original Note: CORINNE FARNSWORTH noted in handoff that pt is interested in a pcp list. CORINNE FARNSWORTH into pt room, provided her with a local healthcare directory pamphlet. Pt states she will set this up on her own and denies need for assistance with this. Pt asked to speak to SW as her air went out at home and she has her father living with her. Updated SW to see about possible resources.
--- NOTE | 2024-09-06 10:57 | PHA.DC.MC.R ---
Pharmacy [facility] Counseling Pharmacy Service has performed discharge medication reconciliation and counseling for this patient. 1. LEVOFLOXACIN 500MG PO DAILY X 7 DAYS 2. METRONIDAZOLE 500MG PO TID X 7 DAYS 3. CARVEDILOL DECREASED TO 3.125MG BID 4. RESUME CHLORTHALIDONE 09/13 The patient's discharge medication list was reviewed for discrepancies and discrepancies were resolved. The patient was counseled on the following discharge medications and changes in medications for homegoing were reviewed. The Reason for Use, instructions for use, and potential side effects were reviewed for all new medications. The patient's questions regarding all of their medications were answered. The patient was able to verbally demonstrate an understanding of their discharge medications. Medications at Discharge Home Medications atorvastatin 40 mg tablet 40 mg PO DAILY 09/04/24 biotin 5 mg capsule 5 mg PO DAILY 09/04/24 chlorthalidone 25 mg tablet 25 mg PO DAILY 09/04/24 Held on 09/06/24. Instructions: Resume on 09/13/24. cholecalciferol (vitamin D3) 50 mcg (2,000 unit) capsule (D3-2000) 50 mcg PO DAILY 09/04/24 famotidine 20 mg tablet 20 mg PO QHS PRN heartburn 09/04/24 fluoxetine 20 mg capsule 20 mg PO DAILY 09/04/24 insulin aspart U-100 100 unit/mL subcutaneous solution 100 unit subcut DAILY 09/04/24 multivitamin (Daily Value tablet) 1 tab PO DAILY 09/04/24 naproxen sodium 220 mg tablet (Aleve) 220 mg PO BID PRN pain 09/04/24 omeprazole 40 mg capsule,delayed release 40 mg PO DAILY 09/04/24 pramipexole 1 mg tablet 1 mg PO QHS 09/04/24 vibegron 75 mg tablet (Gemtesa) 75 mg PO DAILY 09/04/24 carvedilol 3.125 mg tablet 3.125 mg PO BIDCM 30 days #60 tabs 09/06/24 levofloxacin 500 mg tablet 500 mg PO DAILY #7 tabs 09/06/24 metronidazole 500 mg tablet 500 mg PO Q8H 7 days #21 tabs 09/06/24
--- NOTE | 2024-09-06 11:02 | DS.PCM_ITS ---
Providers Date of Admission: 09/04/24 Primary Care Physician: MARCELO HOLGUIN DO Consultations 09/04/24 19:32 Consult: Gastroenterology Routine Consulting Provider: [facility] Reason for Consult: lower GI bleed w/ colitis EMERGENT Consult: No MD Notified: Yes Date Notified: 09/04/24 Time Notified: 18:48 Method of Notification: ED Physician Initiated Reason For Visit: COLITIS AND LOWER GI BLEED Diagnosis Discharge Diagnosis (1) Gastrointestinal bleeding, lower: Status: Acute Code(s): K92.2 - Gastrointestinal hemorrhage, unspecified Medications at Discharge Home Medications atorvastatin 40 mg tablet 40 mg PO DAILY 09/04/24 biotin 5 mg capsule 5 mg PO DAILY 09/04/24 chlorthalidone 25 mg tablet 25 mg PO DAILY 09/04/24 Held on 09/06/24. Instructions: Resume on 09/13/24. cholecalciferol (vitamin D3) 50 mcg (2,000 unit) capsule (D3-2000) 50 mcg PO DAILY 09/04/24 famotidine 20 mg tablet 20 mg PO QHS PRN heartburn 09/04/24 fluoxetine 20 mg capsule 20 mg PO DAILY 09/04/24 insulin aspart U-100 100 unit/mL subcutaneous solution 100 unit subcut DAILY 09/04/24 multivitamin (Daily Value tablet) 1 tab PO DAILY 09/04/24 naproxen sodium 220 mg tablet (Aleve) 220 mg PO BID PRN pain 09/04/24 omeprazole 40 mg capsule,delayed release 40 mg PO DAILY 09/04/24 pramipexole 1 mg tablet 1 mg PO QHS 09/04/24 vibegron 75 mg tablet (Gemtesa) 75 mg PO DAILY 09/04/24 carvedilol 3.125 mg tablet 3.125 mg PO BIDCM 30 days #60 tabs 09/06/24 levofloxacin 500 mg tablet 500 mg PO DAILY #7 tabs 09/06/24 metronidazole 500 mg tablet 500 mg PO Q8H 7 days #21 tabs 09/06/24 Hospital Course Operations None Procedures Colonoscopy Summary of Care Provided Minutes Spent on Discharge: 36 Hospital Course: Per HPI: SHILPA TEJEDA, is a 54-year-old female with a history of hypertension, depression, diabetes, GERD presented to [facility] ED 09/04/2024 due to rectal bleeding began 4:00 this morning about 12 hours prior to arrival. He was seen in the ED yesterday for AYLA and dehydration. Since this a.m. she has had at least 5 bloody bowel movements with the last one approximately at noon. Left-sided crampy abdominal pain. 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 Patient feels a little bit weak and lightheaded. In the ED, temperature 98.3, heart rate 78 with a blood pressure 112/63, respiratory rate 16 pulse ox 99% on room air. Orthostats negative. CBC with white blood cell count of 16.6, hemoglobin 11.9 (down from 13.5), potassium 3.1 and BUN of 19 with creatinine 1.12 (down from 1.9 yesterday). Glucose 185. CT of the abdomen pelvis with left colonic and sigmoid colonic wall thickening and inflammation concerning for colitis. GI contacted in the ED and recommended bowel prep and she will be seen in consultation for possible lower scope. Patient evaluated at bedside, reports diarrhea that started yesterday months when she came to the ED, went home in stable condition but then between 4 AM and noon she had 4-5 bloody bowel movements, she did not notice clots but did notice bright red, she had crampy belly pain before each episode and still has a little bit of abdominal discomfort. Also some decreased urination. No fevers or chills but did have some sweats yesterday Hospital Course: 1. Ischemic colitis with lower GI bleed/GERD?54-year-old female presented to the hospital with lower GI bleed secondary to colitis colonoscopy was performed by GI and they felt that it was ischemic in nature. She was on 12.5 mg of Coreg twice daily and chlorthalidone, the Coreg was decreased to 3.125 mg p.o. twice daily and her chlorthalidone was held until outpatient follow-up. Will continue with Levaquin and Flagyl on discharge for another week. She wanted to go home yesterday but had not been trialed on a diet and her white count had risen to 19 however today her leukocytosis is down to 15.2 she tolerated regular diet for breakfast. I had discussed with her the possibility of discharge today and she expressed understanding of the risks and benefits of going home and would like to go home today. I do recommend she follow-up with gastroenterology as an outpatient as well as her PCP to monitor her blood pressure. 2. Essential hypertension?blood pressures were controlled on the lower dose of Coreg and holding her chlorthalidone. I elected to prescribe her the new lower dose of Coreg 3.125 given the fact that the findings on colonoscopy indicated ischemic colitis. I also held her chlorthalidone for a week so she can follow- up with her PCP prior to restarting it to check what her blood pressures have been doing. 3. Type 2 diabetes, restless leg syndrome, anxiety, depression are all chronic medical conditions which complicate her care. Her home medications were continued where appropriate Physical Exam Narrative General: Alert, Oriented x3, Cooperative, No apparent distress HEENT: Atraumatic, PERRLA, EOMI, Normocephalic Oral: Moist Mucosa Neck: Supple, No JVD Lungs: Diminished, Normal air movement, No rhonchi, No wheeze, No rales Cardiovascular: Regular rate, Regular Rhythm, Normal S1, Normal S2, No murmurs Abdomen: Soft, nontender, Non-Distended, No Hepato-splenomegaly Extremities: No edema, Capillary Refill Less than 3 Seconds Skin: No rashes, No breakdown Musculoskeletal: No Tenderness to Palpation of Joints or Extremities Neurological: No focal neurological deficits, Motor Exam 5/5 strength throughout, Sensory exam intact to light touch and pain Psych/Mental Status: Normal Affect, Appropriate Weight / BMI Weight Weight: 196 lb 2.994 oz Body Mass Index (BMI) 33.5 ABG / Lab / Microbiology Data 09/06/24 04:42 09/06/24 04:42 Laboratory: Laboratory Results - last 24 hr 09/05/24 15:08: Hgb 11.3 L, Hct 35.6 L 09/05/24 21:47: POC Glucose 137 H 09/06/24 04:42: WBC 15.2 H, RBC 4.11 L, Hgb 11.7 L, Hct 36.2 L, MCV 88.1, MCH 28.5, MCHC 32.3, RDW Std Deviation 45.9 H, RDW Coeff of Dickson 14.2, Plt Count 378, MPV 9.6, Immature Gran % (Auto) 0.500, Neut % (Auto) 66.7, Lymph % (Auto) 22.4, Winston % (Auto) 8.2, Eos % (Auto) 1.8, Baso % (Auto) 0.4, Absolute Neuts (auto) 10.1 H, Absolute Lymphs (auto) 3.41, Nucleated RBC % 0, Sodium 140, Potassium 3.6, Chloride 103, Carbon Dioxide 24.7, Anion Gap 13, BUN 10, Creatinine 0.90, Estim Creat Clear Calc 75.38, Est GFR (MDRD) Non-Af 75, BUN/Creatinine Ratio 10.6, Glucose 140 H, Calcium 9.3 09/06/24 06:33: POC Glucose 96 D/C Instructions Call your doctor if you observe: Fever of 101 or Higher, Shortness of breath, Dizziness, Fainting spells, Swelling in the ankles, Chest pain and Increased palpitations (irregular heartbeat) DC O2, CPAP, BIPAP Needs Home O2 Discharge instructions: No Meaningful Use Info Meaningful Use Meaningful Use Diagnoses (Choose all that apply): None applicable Discharge Plan Admission Admit Date/Time: 09/04/24 18:41 Attending Provider: Luis Dunn Primary Care Provider: MARCELO HOLGUIN Consulting Providers: Christi Colmenares Instructions Patient Instructions: Ischemic Colitis, ED Understanding Colitis Discharge Orders/Prescriptions Prescriptions: New carvedilol 3.125 mg Tablet 3.125 mg PO BIDCM 30 Days Qty: 60 0RF metronidazole 500 mg tablet 500 mg PO Q8H 7 Days Qty: 21 0RF levofloxacin 500 mg tablet 500 mg PO DAILY Qty: 7 0RF Continued pramipexole 1 mg tablet 1 mg PO QHS atorvastatin 40 mg tablet 40 mg PO DAILY omeprazole 40 mg capsule,delayed release(DR/EC) 40 mg PO DAILY famotidine 20 mg tablet 20 mg PO QHS PRN (Reason: heartburn) insulin aspart U-100 100 unit/mL solution 100 unit subcut DAILY fluoxetine 20 mg capsule 20 mg PO DAILY Gemtesa 75 mg tablet 75 mg PO DAILY multivitamin [Daily Value] Tablet 1 tab PO DAILY cholecalciferol (vitamin D3) [D3-2000] 50 mcg (2,000 unit) capsule 50 mcg PO DAILY biotin 5 mg capsule 5 mg PO DAILY naproxen sodium [Aleve] 220 mg tablet 220 mg PO BID PRN (Reason: pain) Held chlorthalidone 25 mg tablet 25 mg PO DAILY Hold Instructions: Resume on 09/13/24. Discontinued carvedilol 12.5 mg tablet 12.5 mg PO BID Referrals / Follow Up: MARCELO HOLGUIN DO [Primary Care Provider] - Within 1 Week FriendRajiv DO [Med Staff - Active Staff] - Within 1 Month Disposition Disposition (needs filled in before D/C Order can be placed): Home, Self Care Charges/Coding Visit Charges Inpatient E&M: 81530 Disch Hosp >30min
== END 2024-09-06 10:42 | disposition home or self-care (01) ==
LOC: ED 17:38 → MS3 18:46
PROVIDERS: Anesthesiology; Internal Medicine Gastroenterology; Admitting Provider Internal Medicine; Emergency Provider Emergency Medicine; PCP Family Medicine; Referring Provider Emergency Medicine; Visit Provider Family Medicine
PROC: 0DJD8ZZ Inspection of Lower Intestinal Tract, Via Natural or Artificial Opening Endoscopic (ICD-10-PCS; CPT 45378; principal; 2024-09-05 13:25)
DX: K55.039 Acute (reversible) ischemia of large intestine, extent unspecified (principal); E11.9 Type 2 diabetes mellitus without complications; Z79.4 Long term (current) use of insulin; K62.5 Hemorrhage of anus and rectum; G25.81 Restless legs syndrome; I10 Essential (primary) hypertension; E78.00 Pure hypercholesterolemia, unspecified; E87.6 Hypokalemia; K21.9 Gastro-esophageal reflux disease without esophagitis; Z79.899 Other long term (current) drug therapy; F41.9 Anxiety disorder, unspecified; F32.A Depression, unspecified; K63.3 Ulcer of intestine; N17.9 Acute kidney failure, unspecified; I95.9 Hypotension, unspecified; E86.0 Dehydration
CPT/HCPCS: 45380; 36415; 71045; 74177; 80048; 82962; 83036; 83605; 84484; 85014; 85018; 85025; 88305; 93005; 96361; 96365; 96366; 96368; 96374; 99221; 99284; 99285; Q9967; A4216; G0378; J2405

== ENCOUNTER 2024-10-23 12:05 | Emergency (ER) | payer MEDICAID, SELFPAY ==
[2024-10-23 12:05] VITALS: BP 141/89; PULSE 73; RESP 16; TEMP 36.2; O2SAT 100
[2024-10-23 14:20] VITALS: BMI 35.0
--- NOTE | 2024-10-23 14:30 | VDLE_ITS ---
Reason For Study Reason For Study: LLE Pain Procedure LEFT This is a venous duplex using B-mode, color flow and GSV is normal. spectral Doppler. CFV is compressible, spontaneous, phasic, competent, Exam performed portable in ED. and demonstrates normal augmentation. The exam was diagnostic. FV is compressible, spontaneous, phasic, competent A preliminary report was called and/or faxed to DR and demonstrates normal augmentation. SUNIL. POP V is compressible, spontaneous, phasic, competent and demonstrates normal augmentation. T/P Trunk is compressible. PTV is compressible. LT PerV is compressible. VL/Venous Duplex US, Unilateral Interpretation Summary Deep veins of the left lower extremity are patent and compressible segmentally. There is no evidence of left lower extremity deep vein thrombosis. Valvular competence appears intact within the p roximal deep venous system on the left . The left great saphenous vein appears patent and compressible segmentally. Ordering Physician: Antony Cuellar Referring Physician: Priscilla Avila Performed By: Hemal Matthews RVT
--- NOTE | 2024-10-23 14:31 | ED.VIS.LOWEX ---
HPI History of Present Illness Chief Complaint: Lower Extremity Injury Detail of Chief Complaint: Left leg/knee pain Informant: patient Narrative Narrative: Patient presents to the emergency department complaint of left leg/knee pain that*about 2 weeks ago. No injury recalled. Scheduled to start some physical therapy tomorrow but really has not seen anybody about the leg. Denies recent travel or surgery. No history of PE or DVT. She denies fevers or chills or sweats. She denies significant swelling in the leg or the knee. [facility] Medical History Hypercholesteremia Hypertension Diabetes Home Medications ?Medication ?Instructions ?Recorded ?Last Taken ?Type atorvastatin 40 mg tablet 40 mg PO DAILY 09/04/24 09/03/24 History biotin 5 mg capsule 5 mg PO DAILY 09/04/24 09/04/24 History chlorthalidone 25 mg tablet 25 mg PO DAILY 09/04/24 09/04/24 History Held on 09/06/24. Instructions: Resume on 09/13/24. cholecalciferol (vitamin D3) 50 50 mcg PO DAILY 09/04/24 09/04/24 History mcg (2,000 unit) capsule (D3-2000) famotidine 20 mg tablet 20 mg PO QHS PRN heartburn 09/04/24 09/03/24 History fluoxetine 20 mg capsule 20 mg PO DAILY 09/04/24 09/04/24 History insulin aspart U-100 100 unit/mL 100 unit subcut DAILY 09/04/24 09/04/24 History subcutaneous solution multivitamin (Daily Value tablet) 1 tab PO DAILY 09/04/24 09/04/24 History naproxen sodium 220 mg tablet 220 mg PO BID PRN pain 09/04/24 09/03/24 History (Aleve) omeprazole 40 mg capsule,delayed 40 mg PO DAILY 09/04/24 09/04/24 History release pramipexole 1 mg tablet 1 mg PO QHS 09/04/24 09/03/24 History vibegron 75 mg tablet (Gemtesa) 75 mg PO DAILY 09/04/24 09/03/24 History carvedilol 3.125 mg tablet 3.125 mg PO BIDCM 30 days #60 tabs 09/06/24 Unknown Rx levofloxacin 500 mg tablet 500 mg PO DAILY #7 tabs 09/06/24 Unknown Rx metronidazole 500 mg tablet 500 mg PO Q8H 7 days #21 tabs 09/06/24 Unknown Rx Allergy/AdvReac Type Severity Reaction Status Date / Time bupropion (From Wellbutrin) Allergy Severe Angioedema Verified 10/23/24 14:22 venlafaxine (From Effexor) Allergy Severe Hives Verified 10/23/24 14:22 amoxicillin Allergy Mild Hives Verified 10/23/24 14:22 Sulfa (Sulfonamide AdvReac Mild OTHER Verified 10/23/24 14:22 Antibiotics) ferrous sulfate (From AdvReac Other Verified 10/23/24 14:22 Sean-Iron) Social History Smoking Status: Never smoker ROS ROS ED Review of Systems ROS Unobtainable: other Constitutional Constitutional ED: Reports lethargy; Denies chills, fever(s), sweats or weight loss Eyes Eyes: Denies blurry vision, change in vision or diplopia ENT ENT ED: Denies rhinorrhea or sore throat Cardiovascular Cardiovascular: Denies chest pain, orthopnea or racing heartbeat Respiratory/Chest Respiratory/Chest: Denies cough, dyspnea, dyspnea on exertion, orthopnea or sputum Gastrointestinal Gastrointestinal: Denies abdominal pain, diarrhea, nausea or vomiting Genitourinary Genitourinary ED: Denies dysuria, hematuria or urinary frequency Musculoskeletal Musculoskeletal: Reports other Details: Left leg/knee pain ; Denies arthralgias, back pain, myalgias or neck pain Integumentary Denies abscess, Abrasions or rash Neurologic Neurologic: Denies headache(s) or weakness Psychiatric Psychiatric: Denies anxiety, depression or suicidal thoughts Endocrine Endocrinology: Denies polydipsia, polyphagia or polyuria Hematologic/Lymphatic Hematologic/Lymphatic: Denies easy bleeding, easy bruising or lymphadenopathy Allergic/Immunologic Allergic/Immunologic ED: Denies mouth swelling, tongue swelling or urticaria EXAM Physical Exam Const Vital Signs: 10/23/24 12:05 10/23/24 15:05 10/23/24 15:33 Temperature 97.1 F L Temperature Source Temporal Pulse Rate 73 66 Respiratory Rate 16 16 Blood Pressure 141/89 H 192/88 H 178/70 H Blood Pressure Mean 106 122 106 Pulse Ox 100 100 Oxygen Delivery Method Room Air Room Air Positive well nourished and well developed General Appearance ED: well developed and NAD HEENT Reports TM's clear and moist mucous membranes normocephalic and atraumatic; Negative for trauma or tenderness Tympanic Membrane ED: Yes TM's clear Eyes PERRL and EOMs intact bilaterally General Eye ED: Negative for pale conjunctiva or scleral icterus Neck no lymphadenopathy, supple and no JVD General: Negative for tenderness Chest Wall inspection of chest normal and palpation of chest normal Chest: Negative for tenderness Resp normal respiratory effort and clear to auscultation bilaterally Effort and Inspection: Negative for respiratory distress or pain with movement Auscultation: Negative for rhonchi, wheezes or diminished lung sounds Cardio regular rate, regular rhythm, S1 normal heart sound, S2 normal heart sound and no murmurs Peripheral Pulses: pulses 2+ throughout GI normal to inspection, nondistended, normoactive bowel sounds, soft to palpation, non-tender, non-distended and no masses Back/Spine no CVA tenderness and no thoracic nor lumbar tenderness Extremity Extremity Narrative: Left leg-I do not appreciate any joint effusion of the knee. She is ligamentously stable. Tenderness mostly to the posterior aspect of the knee. No masses palpated. No ropes or cords palpated. She does have some pain with flexion extension of the knee. She has tenderness to the proximal calf on exam. There is no erythema or warmth. Compartment soft. Neurovascular intact distally. General Extremety ED: Negative for edema General Extremity: Negative for edema Neuro oriented x3, CN's II-XII intact bilaterally, no sensory deficits noted and gait normal Sensorium / Orientation: awake, alert, oriented to person, oriented to place and oriented to time Motor Exam: strength 5/5 throughout and strength abnormal Psych mental status grossly normal Skin no rashes or lesions noted and no wounds MDM MDM MDM Narrative Medical decision making narrative: Patient presents to the emergency department with atraumatic left leg and knee pain. She is denying any chest pain. No history of PE or DVT. Will obtain venous Doppler and left knee x-rays to evaluate further. Venous Doppler of the left lower extremity was negative for DVT. Patient also had x-rays of the left knee which were unremarkable. This point suspect likely left calf pain/strain. There is no signs of infection on exam clinically. Recommended follow-up with orthopedics if symptoms do not improve. She will stick to Tylenol as she states she cannot take ibuprofen due to prior AYLA. Radiography Diagnostic Testing: Clinical Impression(s) from Imaging Studies Knee X-Ray 10/23/24 15:06 IMPRESSION: NO EFFUSION ACUTE FRACTURE OR DISLOCATION. Reading Location: [id number] 4 view x-rays of left knee obtained interpreted by myself no evidence of fracture or dislocation. Radiology in agreement. Discharge Plan Triage Chief Complaint: Lower Extremity Injury ED Provider: Antony Cuellar Dx/Rx/DC Orders Clinical Impression: Pain of left calf Instructions: ED Muscle Strain, Extremity Prescriptions: No Action pramipexole 1 mg tablet 1 mg PO QHS atorvastatin 40 mg tablet 40 mg PO DAILY chlorthalidone 25 mg tablet 25 mg PO DAILY omeprazole 40 mg capsule,delayed release(DR/EC) 40 mg PO DAILY famotidine 20 mg tablet 20 mg PO QHS PRN (Reason: heartburn) insulin aspart U-100 100 unit/mL solution 100 unit subcut DAILY fluoxetine 20 mg capsule 20 mg PO DAILY Gemtesa 75 mg tablet 75 mg PO DAILY multivitamin [Daily Value] Tablet 1 tab PO DAILY cholecalciferol (vitamin D3) [D3-2000] 50 mcg (2,000 unit) capsule 50 mcg PO DAILY biotin 5 mg capsule 5 mg PO DAILY naproxen sodium [Aleve] 220 mg tablet 220 mg PO BID PRN (Reason: pain) carvedilol 3.125 mg Tablet 3.125 mg PO BIDCM 30 Days Qty: 60 0RF metronidazole 500 mg tablet 500 mg PO Q8H 7 Days Qty: 21 0RF levofloxacin 500 mg tablet 500 mg PO DAILY Qty: 7 0RF Primary Care Provider: MARCELO HOLGUIN Referrals: Jason Lowry MD [Med Staff - Active Staff] - 5-7 Days MARCELO HOLGUIN DO [Primary Care Provider] - 3-5 Days Print Language: Egyptian Disposition Disposition: Home, Self Care
[2024-10-23 15:05] VITALS: BP 192/88; PULSE 66; RESP 16; O2SAT 100
--- NOTE | 2024-10-23 15:06 | RAD_ITS ---
PROCEDURE: KNEE 4 OR MORE VIEWS 10/23/2024 REASON FOR EXAM: PAIN TECHNIQUE: Procedure Code: RADKN Modality: DX Procedure: KNEE 4 OR MORE VIEWS Laterality: Left knee COMPARISON: None FINDINGS: Bones: No fracture. No suspicious bone lesion. Joints: Unremarkable Effusion: No effusion. Soft tissues: Soft tissues are unremarkable. Other: RAD/Knee 4 or More Views IMPRESSION: NO EFFUSION ACUTE FRACTURE OR DISLOCATION. Reading Location: [id number]
[2024-10-23 15:33] VITALS: BP 178/70
[2024-10-23 15:42] VITALS: BP 178/70; PULSE 73; RESP 16; TEMP 36.7; O2SAT 97
== END 2024-10-23 15:55 | disposition home or self-care (01) ==
PROVIDERS: Emergency Provider Emergency Medicine; PCP Family Medicine; Visit Provider Emergency Medicine
DX: M79.662 Pain in left lower leg (principal); E11.9 Type 2 diabetes mellitus without complications; I10 Essential (primary) hypertension; E78.00 Pure hypercholesterolemia, unspecified
CPT/HCPCS: 73564; 93971; 99282

== ENCOUNTER 2024-10-31 14:00 | Outpatient (RCR) | payer MEDICAID, SELFPAY ==
--- NOTE | 2024-10-22 12:28 | HP.PTEVAL_ITS ---
Patient's Visit Information Visit Information Visit Information: SHILPA TEJEDA is a 54 year old F referred to Physical Therapy by Dr. Joey De Loen MD with a diagnosis of cervical radiculopathy and chronic R shoulder pain and L spondylosis. Date of Evaluation: 10/22/24 Physical Therapist: DAGMAR Bhardwaj Visit Plan Frequency: 2x /Week Duration: 2 Months Plan: 2X/ week for 8 weeks for AT for neutral spine core stability, LE strength, stretching of B Hamstrings and gastroc, UE strength (R shoulder pain), c-spine AROM, postural and scapular exercises with HEP. Subjective Subjective: Pt had neck Fusion surgery in Mar. She had pain down one arm now had down both arms and back. She also has LB issues and muscle tension down B legs and that has been going on for years but the pain that she is having now has been there the last 2 months. She was dehydrated and had a kidney issue and was on a medicine that messes with tendons and joints and the Dr does not think that was what it was. The Pain management that she saw said that because of all the Degeneration her muscles are all tight and tender. Pain management sent her here to PT. She has not had any injections. 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 She does not do any exercise. 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 Dr wants her to do water therapy. Hips hurt and tosses and turns all night. Pain R shoulder and arm: Pain Intensity (Out of 10): 5 L knee pain: Pain Intensity (Out of 10): 7 R hip pain: Pain Intensity (Out of 10): 5 neck pain: Pain Intensity (Out of 10): 0 Comment: pain with turning Back pain: Pain Intensity (Out of 10): 0 Objective Objective: Gait: First few steps she has increased pain in L knee but after a few steps she was able to get more of a smoother gait pattern with slightly decreased stance time on the L LE. LE MMT: R hip flex 13.3 and L 10.1 R knee ext 11.4 and L 7.9 R knee flex 7.5 and L 5.3 R hip abd 8.7 and L 7.3 Increase pain with L SLR and tight HS on the L (stretch pain with stretching) Bridge: 3/4 normal ROM bridge Pt is able to heel and toe raise with UE support Trunk AROM: flexion 50%, Ext 50%, SB B 75%, Rot B 50% C-spine AROM: flexion 100%, Ext 10%, 75% B c-spine rotation and 75% B SB LE MMT: R hip flex 13.3 and L 10.1 R knee ext 11.4 and L 7.9 R knee flex 7.5 and L 5.3 R hip abd 8.7 and L 7.3 Manager Cosmetic strength: Pt is R handed R 32 and L 30 Balance/Special Test Scores Oswestry Low Back Score: 25 Oswestry Neck Score: 20 Goals Goal 1:: I HEP Goal Time Frame: 6-8 Weeks Goal 2:: Decrease pain along the spine and extremities by 50% Goal Time Frame: 6-8 Weeks Goal 3:: Be able to stand up and walk immed without having L behind the knee pain Goal Time Frame: 6-8 Weeks Goal 4:: Increase UE and LE strength (at the time of the eval: LE MMT: R hip flex 13.3 and L 10.1 R knee ext 11.4 and L 7.9 R knee flex 7.5 and L 5.3 R hip abd 8.7 and L 7.3 LE MMT: R hip flex 13.3 and L 10.1 R knee ext 11.4 and L 7.9 R knee flex 7.5 and L 5.3 R hip abd 8.7 and L 7.3 Rehabilitation Potential Rehabilitation Potential: Good Anticipated Interventions Patient/Client Instruction: Educate patient on: Condition and Plan of Care For the Purpose of:: To decrease pain, To increase ROM, To improve nutrient delivery to tissue, To improve muscle performance and motor function, To improve ability to perform ADL's, To increase tolerance to activity/condition/position, To improve performance and independence with ADL's, To decrease level of supervision to perform tasks, To improve ability of physical actions for home/community/work/leisure, To improve gait and locomotor functions, To improve health of tissue, To decrease soft tissue restriction, To increase flexibility/ROM and To improve endurance Therapeutic Exercise to Include: Strength training, Endurance training, Body mechanics, Postural training, Flexibilty training, "In an aquatic setting", Active ROM, Dynamic Lumbar Stabilization and Scapular Strength/Stabilization For the Purpose of:: To decrease pain, To increase ROM, To improve nutrient delivery to tissue, To improve muscle performance and motor function, To improve ability to perform ADL's, To increase tolerance to activity/condition/position, To improve performance and independence with ADL's, To decrease level of supervision to perform tasks, To improve ability of physical actions for home/community/work/leisure, To improve gait and locomotor functions, To improve health of tissue, To decrease soft tissue restriction, To increase flexibility/ROM and To improve endurance Text: Thank you for the opportunity to evaluate your patient. For Medicare and Medicare HMO plans, please review the plan of care and approve it. It will need to be FAXED BACK to us at [phone] for Medicare purposes. For Medicare only, by signing this I certify the plan of care. Please let me know if there are questions or concerns regarding this plan of care. Physician Signature: Date:
--- NOTE | 2024-12-18 13:35 | HP.PT.NRP ---
Patient Information Patient Information: SHILPA DELUCA was seen in my office for initial evaluation on 10/22/24. The following Plan of Care was established for this patient: POC Established Initial Frequency: 2x /Week Initial Duration: 2 Months Anticipated Interventions Patient/Client Instruction: Educate patient on: Condition and Plan of Care For the Purpose of:: To decrease pain, To increase ROM, To improve nutrient delivery to tissue, To improve muscle performance and motor function, To improve ability to perform ADL's, To increase tolerance to activity/condition/position, To improve performance and independence with ADL's, To decrease level of supervision to perform tasks, To improve ability of physical actions for home/community/work/leisure, To improve gait and locomotor functions, To improve health of tissue, To decrease soft tissue restriction, To increase flexibility/ROM and To improve endurance Therapeutic Exercise to Include: Strength training, Endurance training, Body mechanics, Postural training, Flexibilty training, "In an aquatic setting", Active ROM, Dynamic Lumbar Stabilization and Scapular Strength/Stabilization For the Purpose of:: To decrease pain, To increase ROM, To improve nutrient delivery to tissue, To improve muscle performance and motor function, To improve ability to perform ADL's, To increase tolerance to activity/condition/position, To improve performance and independence with ADL's, To decrease level of supervision to perform tasks, To improve ability of physical actions for home/community/work/leisure, To improve gait and locomotor functions, To improve health of tissue, To decrease soft tissue restriction, To increase flexibility/ROM and To improve endurance Last Seen Last Seen: This patient was last seen in our office 10/31/24. Pertinent comments regarding their Physical therapy will appear below: REBECCA PT At this point I will be discontinuing this patient from physical therapy. I would be happy to see this patient again in the future if found appropriate by the physician. Thank you! Lolly Garrett, MPT Balance/Gait/Functional tests Balance/Special Test Scores Oswestry Low Back Score: 25 Oswestry Neck Score: 20
== END 2024-10-31 19:00 | disposition home or self-care (01) ==
LOC: PT 14:00
PROVIDERS: PCP Family Medicine; Referring Provider Anesthesiology Pain Medicine; Visit Provider Anesthesiology Pain Medicine
DX: M54.12 Radiculopathy, cervical region (principal); M25.511 Pain in right shoulder; G89.29 Other chronic pain; M47.816 Spondylosis without myelopathy or radiculopathy, lumbar region
CPT/HCPCS: 97113; 97162

== ENCOUNTER → 2024-11-19 | Outpatient (CLI) | payer MEDICAID, SELFPAY ==
--- NOTE | 2024-11-19 10:20 | NM_ITS ---
PROCEDURE: GASTRIC EMPTYING STUDY 11/19/2024 REASON FOR EXAM: DIARRHEA AND ABD PAIN COMPARISON: None. TECHNIQUE: Procedure Code: NMGES Modality: NM Procedure: GASTRIC EMPTYING STUDY The patient ingested a standard semi solid meal of oatmeal. There was no vomiting postprandially. Anterior and posterior planar images of the upper abdomen were obtained for a total of 60 minutes. Regions of interest were drawn, and a geometric mean was used to calculate a [id number]. Medications taken in the past 24 hours that may affect gastric emptying: None RADIOPHARMACEUTICAL: Oral administration 1 mCi technetium 99 M sulfur colloid, within the oatmeal. FINDINGS: During the time of imaging, gastroesophageal reflux was not seen. Linear fit gastric emptying half-time of 42.23 minutes. Gastric emptying at 17.5 minutes of 35%, at 29.5 minutes of 53%, at 47.5 minutes of 58%, and at 59.5 minutes of 67%. NM/Gastric Emptying Study IMPRESSION: Semi solid phase gastric emptying within the normal range. Reading Location: [place] [id number]
--- NOTE | 2024-11-19 10:20 | NM_ITS ---
PROCEDURE: GASTRIC EMPTYING STUDY 11/19/2024 REASON FOR EXAM: DIARRHEA AND ABD PAIN COMPARISON: None. TECHNIQUE: Procedure Code: NMGES Modality: NM Procedure: GASTRIC EMPTYING STUDY The patient ingested a standard semi solid meal of oatmeal. There was no vomiting postprandially. Anterior and posterior planar images of the upper abdomen were obtained for a total of 60 minutes. Regions of interest were drawn, and a geometric mean was used to calculate a [id number]. Medications taken in the past 24 hours that may affect gastric emptying: None RADIOPHARMACEUTICAL: Oral administration 1 mCi technetium 99 M sulfur colloid, within the oatmeal. FINDINGS: During the time of imaging, gastroesophageal reflux was not seen. Linear fit gastric emptying half-time of 42.23 minutes. Gastric emptying at 17.5 minutes of 35%, at 29.5 minutes of 53%, at 47.5 minutes of 58%, and at 59.5 minutes of 67%. NM/Gastric Emptying Study IMPRESSION: Semi solid phase gastric emptying within the normal range. Reading Location: [place] [id number]
== END | disposition home or self-care (01) ==
PROVIDERS: PCP Family Medicine; Referring Provider Internal Medicine Gastroenterology; Visit Provider Internal Medicine Gastroenterology
DX: R19.7 Diarrhea, unspecified (principal); R10.9 Unspecified abdominal pain
CPT/HCPCS: 78264; A9541

== ENCOUNTER 2024-12-03 23:23 | Emergency (ER) | payer MEDICAID, SELFPAY ==
[2024-12-03 23:24] VITALS: BP 183/90; PULSE 87; RESP 16; TEMP 36.5; O2SAT 95
[2024-12-03 23:32] VITALS: BMI 35.2
[2024-12-04 00:38] LABS: Hematocrit 41.6 % (37-47); Hemoglobin 13.5 g/dL (12.0-15.0); Immature Granulocytes Count 0.100 X10^3/uL (0.0-0.0); Mean Corp Hgb Conc 32.5 g/dL (32-36); Mean Corpuscular Volume 87.2 fL (81-99); Mean Platelet Vol. 9.1 fl (6.2-12.0); NRBC Flagged by Analyzer 0 % (0-5); Platelet Count 471 K/mm3 (150-450); RBC Distribution Width CV 13.9 % (11.6-14.6); RBC Distribution Width SD 44.9 fl (35.1-43.9); Red Blood Count 4.77 M/mm3 (4.2-5.4); White Blood Count 15.5 K/mm3 (4.4-11.0)
[2024-12-04 01:24] LABS: Lipase 106 U/L (13-75)
--- NOTE | 2024-12-04 01:35 | CT_ITS ---
PROCEDURE: ABDOMEN/PELVIS W IV CONT ONLY 12/04/2024 REASON FOR EXAM: ABD PAIN TECHNIQUE: Procedure Code: [id number] Modality: CT Procedure: ABDOMEN/PELVIS W IV CONT ONLY Coronal and Sagittal reconstruction series were provided. CONTRAST: OMNIPAQUE 350 VOLUME: 100 mL One or more dose reduction techniques were used (e.g., Automated exposure control, adjustment of the mA and/or kV according to patient size, use of iterative reconstruction technique. RADIATION DOSE SUMMARY: CTDlvol: 22.93 mGy DLP: 1174 mGycm COMPARISON: CT scan on 09/04/2024. FINDINGS: Prior cholecystectomy. Mild hepatic steatosis. Small sliding hiatal hernia. Diffuse thickening of the stomach suggestive of gastritis. Fluid-filled colon, possibly secondary to diarrhea/enteritis. The spleen is not visualized. Unchanged nodularity of the left adrenal gland. Fat containing umbilical hernia without incarceration. Bilateral tubal clips are again noted. Mild diffuse spondylosis. The visualized lung bases are unremarkable. Normal extrahepatic biliary system. Normal pancreas. Normal right adrenal gland. Normal size of the right kidney. There is no right renal mass. There are no right renal calculi. There is no right hydronephrosis. Normal visualized right ureter. Normal size of the left kidney. There is no left renal mass. There are no left renal calculi. There is no left hydronephrosis. Normal visualized left ureter. Normal small intestine. The appendix is visualized and appears normal. There is no demonstrated peritoneal fluid. Normal abdominal aorta. Normal inferior vena cava. Normal retroperitoneum. Normal urinary bladder. There is no pelvic mass lesion or lymphadenopathy. There is no pelvic fluid. CT/Abdomen/Pelvis W IV Cont ONLY IMPRESSION: Prior cholecystectomy. Mild hepatic steatosis. Small sliding hiatal hernia. Diffuse thickening of the stomach suggestive of gastritis. Fluid-filled colon, possibly secondary to diarrhea/enteritis. The spleen is not visualized. Unchanged nodularity of the left adrenal gland. Fat containing umbilical hernia without incarceration. Bilateral tubal clips are again noted. Mild diffuse spondylosis. Reading Location: [place] [id number]
[2024-12-04 02:11] LABS: AST(SGOT) 37 U/L (<=31); Alanine Aminotransfer ALT/SGPT 37 U/L (<=34); Albumin, Serum 4.3 g/dL (3.5-5.0); Alkaline Phosphatase 140 U/L (35-104); BUN 9 mg/dL (4-19); BUN/Creat Ratio 11.1 RATIO (10-20); Bilirubin, Direct 0.24 mg/dL (0.00-0.30); Calcium,Total 9.1 mg/dL (7.6-11.0); Carbon Dioxide 25.2 mmol/L (21.0-32.0); Estimated Creatinine Clearance 88.97 ml/min (50-250); Globulin 3.2 g/dL (2.2-4.2); Glucose 94 mg/dL (70-99)
[2024-12-04 02:13] LABS: Anion Gap 15 (5-15); Chloride 101 mmol/L (98-108); Potassium 2.8 mmol/L (3.3-5.1)
[2024-12-04 03:23] VITALS: BP 166/84; PULSE 107; RESP 16; O2SAT 97
[2024-12-04 04:00] VITALS: BP 169/79; PULSE 99; RESP 18; O2SAT 95
--- NOTE | 2024-12-04 04:20 | EX.ED.DYSGE1 ---
HPI History of Present Illness Chief Complaint: Hypoglycemia Informant: patient Narrative Narrative: Patient is a 54-year-old female with past medical history of insulin-dependent type 1 diabetes. Patient states that today she developed bouts of nausea vomiting and diarrhea with subjective fevers and chills. She states she took her normal insulin after eating but then noted that her blood sugar remained low at approximately 50. She denies any known sick contact. She states that she did not inadvertently overdose on her insulin through the insulin pump. She states she is concerned that she may have a infection causing her symptoms and with this presents for evaluation The patient denies any recent travel outside the country or livestock exposure. However she does admit to recent antibiotic use for colitis. [facility] Medical History (Updated 12/04/24 @ 04:[address] David Carlson DO) GERD (gastroesophageal reflux disease) Diabetes type 2 Cancer Anemia Adrenal disorder Hypercholesteremia Hypertension Diabetes Home Medications Medication Instructions Recorded Last Taken Type atorvastatin 40 mg tablet 40 mg PO DAILY 09/04/24 09/03/24 History biotin 5 mg capsule 5 mg PO DAILY 09/04/24 09/04/24 History cholecalciferol (vitamin D3) 50 50 mcg PO DAILY 09/04/24 09/04/24 History mcg (2,000 unit) capsule (D3-1999) famotidine 20 mg tablet 20 mg PO QHS PRN heartburn 09/04/24 09/03/24 History fluoxetine 20 mg capsule 20 mg PO DAILY 09/04/24 09/04/24 History insulin aspart U-100 100 unit/mL 100 unit subcut DAILY 09/04/24 09/04/24 History subcutaneous solution multivitamin (Daily Value tablet) 1 tab PO DAILY 09/04/24 09/04/24 History naproxen sodium 220 mg tablet 220 mg PO BID PRN pain 09/04/24 09/03/24 History (Aleve) omeprazole 40 mg capsule,delayed 40 mg PO DAILY 09/04/24 09/04/24 History release pramipexole 1 mg tablet 1 mg PO QHS 09/04/24 09/03/24 History vibegron 75 mg tablet (Gemtesa) 75 mg PO DAILY 09/04/24 09/03/24 History carvedilol 3.125 mg tablet 3.125 mg PO BIDCM 30 days #60 tabs 09/06/24 Unknown Rx baclofen 10 mg tablet 10 mg PO BID 11/01/24 Unknown History tizanidine 4 mg capsule 4 mg PO Q8H PRN 11/01/24 Unknown History ondansetron 4 mg disintegrating 4 mg PO TID PRN nausea and 12/04/24 Unknown Rx tablet vomiting #21 tabs oxycodone-acetaminophen 5 mg-325 1 tab PO Q6H PRN pain 3 days #12 12/04/24 Unknown Rx mg tablet (Percocet) tabs potassium chloride 10 mEq 10 meq PO DAILY 7 days #7 caps 12/04/24 Unknown Rx capsule,extended release vancomycin 125 mg capsule 125 mg PO 4X/DAY 10 days #40 caps 12/04/24 Unknown Rx Allergy/AdvReac Type Severity Reaction Status Date / Time bupropion (From Wellbutrin) Allergy Severe Angioedema Verified 12/03/24 23:24 venlafaxine (From Effexor) Allergy Severe Hives Verified 12/03/24 23:24 amoxicillin Allergy Mild Hives Verified 12/03/24 23:24 Sulfa (Sulfonamide AdvReac Mild OTHER Verified 12/03/24 23:24 Antibiotics) ferrous sulfate (From AdvReac Other Verified 12/03/24 23:24 Sean-Iron) Family History (Updated 11/01/24 @ 15:08 by Karely Thomas) Father Diabetes Hypertension Kidney disease Cancer melanoma Parkinson disease CVA (cerebral vascular accident) Mother Anxiety Depression Diabetes Myocardial infarction Hypertension Suicide attempt Grandmother Breast cancer Sister Diabetes Thyroid disorder Surgical History History of partial hysterectomy Social History (Updated 11/01/24 @ 15:04 by Karely Thomas) Smoking Status: Never smoker alcohol intake: never substance use type: does not use what type of physical activity do you participate in: none ROS ROS ED Constitutional Constitutional ED: Reports chills, fever(s), subjective and other Details: Positive fatigue ENT ENT ED: Denies sore throat Cardiovascular Cardiovascular: Denies chest pain Respiratory/Chest Respiratory/Chest: Denies cough or dyspnea Gastrointestinal Gastrointestinal: Reports abdominal pain, diarrhea, nausea and vomiting; Denies melena Genitourinary Genitourinary ED: Denies dysuria Musculoskeletal Musculoskeletal: Reports myalgias Integumentary Denies rash Neurologic Neurologic: Denies headache(s) Hematologic/Lymphatic Hematologic/Lymphatic: Denies easy bleeding or easy bruising EXAM Physical Exam Const Vital Signs: 12/03/24 23:24 12/03/24 23:33 12/04/24 03:23 Temperature 97.7 F L Temperature Source Oral Pulse Rate 87 107 H Respiratory Rate 16 16 Respiratory Effort Normal Non-Labored Respiratory Pattern Normal Blood Pressure 183/90 H 166/84 H Blood Pressure Mean 121 111 Pulse Ox 95 97 Oxygen Delivery Method Room Air Room Air 12/04/24 04:00 12/04/24 04:35 12/04/24 06:00 Temperature 97.8 F Temperature Source Pulse Rate 99 94 87 Respiratory Rate 18 16 16 Respiratory Effort Respiratory Pattern Blood Pressure 169/79 H 165/88 H Blood Pressure Mean 109 113 Pulse Ox 95 99 99 Oxygen Delivery Method Room Air Positive well nourished and well developed General Appearance ED: well developed; Negative for pallor HEENT Reports dry mucous membranes HEENT Narrative: Normocephalic atraumatic No tongue or lip swelling no oral lesions no airway edema or compromise; no secondary findings in the posterior pharynx to suggest infection Mucous membranes are mildly dry and tacky Mouth ED: Yes dry mucous membranes Mouth: dry mucous membranes Eyes PERRL and EOMs intact bilaterally General Eye ED: Negative for scleral icterus Neck supple Neck Narrative: No nuchal rigidity or meningeal signs Resp normal respiratory effort and clear to auscultation bilaterally Cardio regular rate and regular rhythm Rate: other Other Details: Heart is regular rate and rhythm without murmurs rubs or gallop Radial and carotid pulses are equal and symmetric GI non-distended and no masses GI Narrative: Abdomen is soft and nondistended with hyperactive bowel sound Mild diffuse pain with palpation without voluntary guarding or rigidity or pulsatile mass No peritoneal signs Auscultation: hyperactive bowel sounds Palpation: soft Extremity normal to inspection Neuro oriented x3, CN's II-XII intact bilaterally and no sensory deficits noted Sensorium / Orientation: alert Motor Exam: strength 5/5 throughout Psych mental status grossly normal Skin no rashes or lesions noted Skin Narrative: Skin turgor is mildly increased General Skin Exam: Negative for jaundice or pallor MDM MDM MDM Narrative Medical decision making narrative: Patient arrived to the ER hypertensive otherwise with stable vitals. She reported her blood sugar was reading low at 52. She states that with this she has got nausea vomiting diarrhea and fatigue. In order to assess for potential viral stomach infection such as rotavirus or norovirus or infectious diarrhea such as Salmonella E. coli or C. difficile I did like to perform a stool study as she reported recent antibiotic use. In order to rule out potential DKA or HHS or acute kidney injury basic blood work was obtained as well. Patient's white count is elevated at 15.5 and her neutrophil count is elevated at 11.8 and therefore with concern for underlying intestinal infection a CT with IV contrast was ordered. Otherwise she does not have signs of DKA or HHS. There is no signs of acute kidney injury. Her potassium is slightly decreased at 2.8 however consistent with dehydration and symptoms of vomiting and diarrhea. The patient CT scan showed changes consistent with enteritis but there is no findings of bowel obstruction diverticulitis intestinal perforation or abscess. After IV hydration and medication in the ER she reported feeling better. The stool study was initially positive for C. difficile antigen. I did ask patient if she had ever had C. difficile before and she is unsure. I tried to review [facility] but I cannot find any record of a previous C. difficile test or result. Therefore initially prescribed vancomycin for her with concern that this was an acute infection based on her recent antibiotic use and symptoms. However while she was waiting for her ride home the toxin resulted and was negative indicating this is a colonization. Therefore the patient does not need to take the vancomycin. This would also indicate that her symptoms are related to a viral gastroenteritis. Her sugar came up with medication and remained elevated and therefore I feel no need for admission for continued glucose drip. Therefore this time she has had improvement of her blood pressure improvement of symptoms she does not have findings of acute kidney injury intestinal obstruction or perforation or abscess and she does not require persistent glucose and therefore she is otherwise safe for discharge. History & Record Review Discussion w/independent historian: Patient Lab Data Attestation: I reviewed the patient's lab results. Labs: Laboratory Results - last 24 hr 12/03/24 12/04/24 12/04/24 23:31 00:27 01:10 WBC 15.5 H RBC 4.77 Hgb 13.5 Hct 41.6 MCV 87.2 MCH 28.3 MCHC 32.5 RDW Std Deviation 44.9 H RDW Coeff of Dickson 13.9 Plt Count 471 H MPV 9.1 Immature Gran % (Auto) 0.600 Neut % (Auto) 76.5 H Lymph % (Auto) 10.5 L Castro % (Auto) 9.3 Eos % (Auto) 2.5 Baso % (Auto) 0.6 Absolute Neuts (auto) 11.8 H Absolute Lymphs (auto) 1.63 Nucleated RBC % 0 Sodium 141 Potassium 2.8 L Chloride 101 Carbon Dioxide 25.2 Anion Gap 15 BUN 9 Creatinine 0.78 Estim Creat Clear Calc 88.97 Est GFR (MDRD) Non-Af 89 BUN/Creatinine Ratio 11.1 Glucose 94 Calcium 9.1 Total Bilirubin 0.56 Direct Bilirubin 0.24 AST 37 H ALT 37 H Alkaline Phosphatase 140 H Total Protein 7.5 Albumin 4.3 Globulin 3.2 Lipase 106 H POC Glucose 58 L 87 12/04/24 04:22 WBC RBC Hgb Hct MCV MCH MCHC RDW Std Deviation RDW Coeff of Dickson Plt Count MPV Immature Gran % (Auto) Neut % (Auto) Lymph % (Auto) Castro % (Auto) Eos % (Auto) Baso % (Auto) Absolute Neuts (auto) Absolute Lymphs (auto) Nucleated RBC % Sodium Potassium Chloride Carbon Dioxide Anion Gap BUN Creatinine Estim Creat Clear Calc Est GFR (MDRD) Non-Af BUN/Creatinine Ratio Glucose Calcium Total Bilirubin Direct Bilirubin AST ALT Alkaline Phosphatase Total Protein Albumin Globulin Lipase POC Glucose 215 H Radiography Diagnostic Testing: Clinical Impression(s) from Imaging Studies Abdomen/Pelvis CT 12/04/24 01:35 IMPRESSION: Prior cholecystectomy. Mild hepatic steatosis. Small sliding hiatal hernia. Diffuse thickening of the stomach suggestive of gastritis. Fluid-filled colon, possibly secondary to diarrhea/enteritis. The spleen is not visualized. Unchanged nodularity of the left adrenal gland. Fat containing umbilical hernia without incarceration. Bilateral tubal clips are again noted. Mild diffuse spondylosis. [facility] Discharge Plan Triage Chief Complaint: Hypoglycemia ED Provider: David Carlson Dx/Rx/DC Orders Clinical Impression: Hypoglycemia, Diarrhea, Type 1 diabetes mellitus, Hypokalemia Instructions: C diff, ED Gastroenteritis, Viral (Adult) Prescriptions: New ondansetron 4 mg tablet,disintegrating 4 mg PO TID PRN (Reason: nausea and vomiting) Qty: 21 0RF potassium chloride 10 mEq capsule, extended release 10 meq PO DAILY 7 Days Qty: 7 0RF oxycodone-acetaminophen [Percocet] 5-325 mg tablet 1 tab PO Q6H PRN (Reason: pain) 3 Days Qty: 12 0RF vancomycin 125 mg capsule 125 mg PO 4X/DAY 10 Days Qty: 40 0RF No Action baclofen 10 mg tablet 10 mg PO BID tizanidine 4 mg capsule 4 mg PO Q8H PRN pramipexole 1 mg tablet 1 mg PO QHS atorvastatin 40 mg tablet 40 mg PO DAILY omeprazole 40 mg capsule,delayed release(DR/EC) 40 mg PO DAILY famotidine 20 mg tablet 20 mg PO QHS PRN (Reason: heartburn) insulin aspart U-100 100 unit/mL solution 100 unit subcut DAILY fluoxetine 20 mg capsule 20 mg PO DAILY Gemtesa 75 mg tablet 75 mg PO DAILY multivitamin [Daily Value] Tablet 1 tab PO DAILY cholecalciferol (vitamin D3) [D3-2000] 50 mcg (2,000 unit) capsule 50 mcg PO DAILY biotin 5 mg capsule 5 mg PO DAILY naproxen sodium [Aleve] 220 mg tablet 220 mg PO BID PRN (Reason: pain) carvedilol 3.125 mg Tablet 3.125 mg PO BIDCM 30 Days Qty: 60 0RF Primary Care Provider: MARCELO HOLGUIN Referrals: MARCELO HOLGUIN DO [Primary Care Provider, Medical] Activity Restrictions/Additional Instructions: Your history exam and CAT scan are most consistent with a viral gastroenteritis causing abdominal discomfort nausea and diarrhea. Your C. difficile PCR test is positive which could indicate active infection versus is colonization. I cannot find an old report documenting a previous history of C. difficile and with your recent antibiotic use it is possible that you have developed this infection. Therefore take the oral vancomycin as directed to resolve the C. difficile infection. Keep yourself well-hydrated and return to the ER should you have any further concerns or worsening of symptoms despite treatment. Print Language: [place] Zealander Disposition Disposition: Home, Self Care Discharge Date/Time: 12/04/24 06:36
[2024-12-04 04:35] VITALS: BP 165/88; PULSE 94; RESP 16; TEMP 36.6; O2SAT 99
[2024-12-04 06:00] VITALS: PULSE 87; RESP 16; O2SAT 99
== END 2024-12-04 06:36 | disposition home or self-care (01) ==
PROVIDERS: Emergency Provider Emergency Medicine; PCP Family Medicine; Visit Provider Emergency Medicine
DX: E10.649 Type 1 diabetes mellitus with hypoglycemia without coma (principal); Z79.4 Long term (current) use of insulin; R19.7 Diarrhea, unspecified; R11.2 Nausea with vomiting, unspecified; I10 Essential (primary) hypertension; E78.00 Pure hypercholesterolemia, unspecified; E87.6 Hypokalemia; R53.83 Other fatigue; Z96.41 Presence of insulin pump (external) (internal); Z79.899 Other long term (current) drug therapy
CPT/HCPCS: 74177; 80048; 80076; 82962; 83630; 83690; 85025; 87177; 87209; 87493; 87506; 96361; 96374; 96375; 99284; Q9967; A4216; J2405

== ENCOUNTER → 2025-01-15 | Outpatient (CLI) | payer MEDICAID, SELFPAY ==
[2025-01-15 11:02] LABS: AST(SGOT) 18 U/L (<=31); Alanine Aminotransfer ALT/SGPT 20 U/L (<=34); Albumin, Serum 3.8 g/dL (3.5-5.0); Alkaline Phosphatase 115 U/L (35-104); Anion Gap 10 (5-15); BUN 17 mg/dL (4-19); BUN/Creat Ratio 18.6 RATIO (10-20); Calcium,Total 9.3 mg/dL (7.6-11.0); Carbon Dioxide 26.8 mmol/L (21.0-32.0); Chloride 107 mmol/L (98-108); Cholesterol 168 mg/dL (<=200); Globulin 2.6 g/dL (2.2-4.2); Glucose 134 mg/dL (70-99); Low Density Lipoprotein Calc. 97 mg/dL; Potassium 4.1 mmol/L (3.3-5.1); Triglycerides 87 mg/dL; Very Low Density Lipoprotein 17 mg/dL (5-40); Vitamin D,25 Hydroxy 88.9 ng/mL (30-100); cholesterol:hdl ratio screen 3.05
[2025-01-15 11:30] LABS: Creatinine, Urine (random) 188.00 mg/dL (28.00-217.00); Microalbumin,Random Urine 15.2 mg/L (<20 mg/L)
== END | disposition home or self-care (01) ==
PROVIDERS: PCP Family Medicine; Referring Provider Nurse Practitioner Family; Visit Provider Nurse Practitioner Family
DX: E55.9 Vitamin D deficiency, unspecified (principal); E10.65 Type 1 diabetes mellitus with hyperglycemia
CPT/HCPCS: 36415; 80053; 80061; 82043; 82306; 82570; 84443; 86376